=== PATIENT | female | born 1930 | race Caucasian/White ===

== ENCOUNTER 2018-06-01 12:20 | Observation (INO) | payer MEDICARE, BC ==
[2018-06-01] MEDS ORDERED: Sodium Chloride 0.9% 1,000 ML IV ONE (12:39)
[2018-06-01 13:45] LABS: CHLORIDE,CL 100 mmol/L (98-107); SODIUM,NA 132 mmol/L (136-145)
[2018-06-01 13:48] LABS: ANION GAP 14.8 mmol/L (10-20)
[2018-06-01] MEDS ORDERED: Phytonadione ORAL 2.5mg/2.5ml Soln Simple Syrup U/D PO ONE (14:04)
--- NOTE | 2018-06-01 14:16 | CR ---
[id number] RAD/RAD Chest PA And Lateral EXAM: RAD Chest PA And Lateral CLINICAL DATA: FEVER COMPARISON: NO PREVIOUS SIMILAR EXAM IS AVAILABLE. FINDINGS: The lungs are clear but hyperaerated. The cardiomediastinal contour is moderately enlarged. The regional bones and soft tissues are unremarkable. IMPRESSION: COPD. NO PNEUMONIA. Mickey Mills MD 06/01/18 [id number] Thank you for allowing us to participate in the care of your patient.
[2018-06-01] MEDS: Sodium Chloride 0.9% with KCl 1,000 ML IV SCH ×2 (14:25→23:44)
[2018-06-01] MEDS ORDERED: Furosemide 20 MG Tab PO PRN (14:26)
[2018-06-01] MEDS ORDERED: Ondansetron 4 MG/2 ML SDV IVPUSH PRN (14:28)
[2018-06-01] MEDS ORDERED: Prochlorperazine 5 MG Tab PO PRN (14:29)
--- NOTE | 2018-06-01 15:06 | EDM.PDOC ---
ED HPI GENERAL MEDICAL PROBLEM - General Chief Complaint: Gastrointestinal Problem Time Seen by Provider: 06/01/18 12:35 Source of Information: Reports: Patient, EMS, Family, RN Notes Reviewed History Limitations: Reports: No Limitations - History of Present Illness INITIAL COMMENTS - FREE TEXT/NARRATIVE: Pt. presents to ER with complaints of nausea, vomiting, and diarrhea. Pt. has a history of metastatic colon CA and underwent a single episode of chemotherapy. Pt. states that she is due to chemo on Wednesday, but she has felt so poorly, she likely will not take it. She states that she has been started on Zofran and started on Immodium, and is continuing to have symptoms. She is having issues keeping fluids down. She is anticoagulated due to previous PE. She states that she did take her morning medications. Denies any fever or chills, but has not been checking her temp. Denies any rashes. No sore throat, rhinorrhea, or congestion. Denies any ill contacts. She has not recently been on any antibiotics or other medications. Duration: Constant Location: Reports: Abdomen, Generalized - Related Data Allergies Allergy/AdvReac Type Severity Reaction Status Date / Time cephalexin Allergy Hives Verified 06/01/18 12:43 codeine Allergy Hives Verified 06/01/18 12:43 latex Allergy Rash Verified 06/01/18 12:43 Sulfa (Sulfonamide Allergy Swelling Verified 06/01/18 12:43 Antibiotics) Home Meds: Home Meds Metoprolol Succinate 1 tab PO DAILY 03/29/18 [History] Acetaminophen 1 - 2 tab PO Q4H PRN 03/30/18 [History] Desoximetasone [Desoximetasone 0.25%] 15 gm TOP DAILY PRN 03/30/18 [History] Famotidine [Pepcid] 20 mg PO BID 03/30/18 [History] Furosemide 20 mg PO DAILY PRN 03/30/18 [History] Magnesium Oxide 400 mg PO BID 03/30/18 [History] Warfarin [Coumadin] 1 tab PO DAILY 03/30/18 [History] Acetaminophen 325 - 650 mg PO Q4H PRN 06/01/18 [History] Prochlorperazine [Compazine] 10 mg PO Q6H PRN 06/01/18 [History] Spironolactone [Aldactone] 25 mg PO DAILY 06/01/18 [History] Past Medical History Cardiovascular History: Reports: Heart Failure, High Cholesterol Respiratory History: Reports: PE, Other (See Below) Other Respiratory History: dyspnea Oncologic (Cancer) History: Reports: Colon - Past Surgical History GI Surgical History: Reports: Other (See Below) Other GI Surgeries/Procedures: bowel surgery Social & Family History - Tobacco Use Smoking Status *Q: Never Smoker ED ROS GENERAL - Review of Systems Review Of Systems: See Below Constitutional: Reports: No Symptoms HEENT: Reports: No Symptoms Respiratory: Reports: No Symptoms Cardiovascular: Reports: No Symptoms Endocrine: Reports: No Symptoms GI/Abdominal: Reports: Diarrhea, Nausea, Vomiting : Reports: No Symptoms Musculoskeletal: Reports: No Symptoms Skin: Reports: No Symptoms Neurological: Reports: No Symptoms Psychiatric: Reports: No Symptoms Hematologic/Lymphatic: Reports: Other (anticoagulated) Immunologic: Reports: No Symptoms ED EXAM, GENERAL - Physical Exam Exam: See Below Exam Limited By: No Limitations General Appearance: Alert, WD/WN, No Apparent Distress Eye Exam: Bilateral Eye: EOMI, Normal Fundi, Normal Inspection, PERRL Ears: Normal External Exam, Normal Canal, Hearing Grossly Normal, Normal TMs Ear Exam: Bilateral Ear: Auricle Normal, Canal Normal, TM normal Nose: Normal Inspection, Normal Mucosa, No Blood Throat/Mouth: Normal Inspection, Normal Lips, Normal Teeth, Normal Gums, Normal Oropharynx, Normal Voice, No Airway Compromise Head: Atraumatic, Normocephalic Neck: Normal Inspection, Supple, Non-Tender, Full Range of Motion Respiratory/Chest: No Respiratory Distress, Lungs Clear, Normal Breath Sounds, No Accessory Muscle Use, Chest Non-Tender Cardiovascular: Systolic Murmur, Irregularly Irregular Peripheral Pulses: 3+: Radial (L), Radial (R) GI/Abdominal: Normal Bowel Sounds, Soft, Non-Tender, No Organomegaly, No Distention (Female) Exam: Deferred Rectal (Female) Exam: Deferred Back Exam: Normal Inspection, Full Range of Motion, NT Extremities: Normal Inspection, Normal Range of Motion, Non-Tender, Normal Capillary Refill, No Pedal Edema Neurological: Alert, Oriented, CN II-XII Intact, Normal Cognition, Normal Gait, Normal Reflexes, No Motor/Sensory Deficits Psychiatric: Normal Affect, Normal Mood Skin Exam: Warm, Dry, Intact, No Rash, Pallor Lymphatic: No Adenopathy Course - Vital Signs Last Recorded V/S: Last Vital Signs Temp 37.9 C 06/01/18 12:30 Pulse 113 H 06/01/18 12:30 Resp 16 06/01/18 12:30 BP 153/78 H 06/01/18 12:30 Pulse Ox 94 L 06/01/18 12:30 - Orders/Labs/Meds Orders: Active Orders 24 hr Category Date Time Status CULTURE BLOOD [BC] Stat Lab 06/01/18 12:55 Received CULTURE BLOOD [BC] Stat Lab 06/01/18 13:04 Received Sodium Chloride 0.9% with KCl [Normal Saline with 40 Med 06/01/18 14:15 Active mEq KCl] 1,000 ml IV ASDIRECTED Blood Culture x2 Reflex Set [OM.PC] Stat Oth 06/01/18 12:38 Ordered Medication Orders Famotidine (Pepcid) 20 mg PO BID RANJIT Furosemide (Lasix) 20 mg PO DAILY PRN PRN Reason: Other Potassium Chloride/Sodium Chloride (Normal Saline With 40 Meq Kcl) 1,000 mls @ 125 mls/hr IV ASDIRECTED RANJIT Last Admin: 06/01/18 14:25 Dose: 125 mls/hr Magnesium Oxide (Magnesium Oxide) 400 mg PO BID RANJIT Metoprolol Succinate (Toprol Xl) 50 mg PO DAILY [facility] Ondansetron HCl (Zofran) 4 mg IVPUSH Q6H PRN PRN Reason: Nausea Prochlorperazine Maleate (Compazine) 5 mg PO Q6H PRN PRN Reason: Nausea/Vomiting Spironolactone (Aldactone) 25 mg PO DAILY [facility] Labs: Laboratory Tests 06/01/18 06/01/18 06/01/18 Range/Units 13:04 13:04 13:04 WBC 6.6 (4.0-10.0) x10^3/uL RBC 4.20 (4.00-5.50) x10^6/uL Hgb 13.1 D (12.0-16.0) g/dL Hct 38.4 (33.0-47.0) % MCV 91.4 D (78.0-93.0) fL MCH 31.2 (26.0-32.0) pg MCHC 34.1 (32.0-36.0) g/dL RDW Coeff of Michelle 17.1 H (10.0-15.0) % Plt Count 340 D (130-400) x10^3/uL Add Manual Diff Yes Neutrophils % (Manual) 48 L (50-80) % Band Neutrophils % 28 H (0-6) % Lymphocytes % (Manual) 9 L (25-50) % Monocytes % (Manual) 15 H (2-11) % Platelet Estimate Adequate Anisocytosis 2+ moderate H PT 88.4 H D (9.6-11.4) SEC INR 8.6 H* (2.0-3.5) Sodium 132 L (136-145) mmol/L Potassium 2.8 L* (3.5-5.1) mmol/L Chloride 100 (98-107) mmol/L Carbon Dioxide 20 L (21-32) mmol/L Anion Gap 14.8 (10-20) mmol/L BUN 14 (7-18) mg/dL Creatinine 0.7 (0.55-1.02) mg/dL Est Cr Clr Drug Dosing 52.96 mL/min Estimated GFR (MDRD) > 60 Glucose 131 H (74-106) mg/dL Lactic Acid (0.4-2.0) mmol/L Calcium 8.9 (8.5-10.1) mg/dL Corrected Calcium 10.42 H (8.5-10.1) mg/dL Phosphorus 2.1 L (2.6-4.7) mg/dL Magnesium 1.5 L (1.8-2.4) mg/dL Total Bilirubin 0.5 (0.2-1.0) mg/dL AST 12 L (15-37) U/L ALT 15 (14-59) U/L Alkaline Phosphatase 87 (46-116) U/L C-Reactive Protein 23.5 H (<=0.9) mg/dL Total Protein 5.4 L (6.4-8.2) g/dL Albumin 2.1 L (3.4-5.0) g/dL Globulin 3.3 Albumin/Globulin Ratio 0.64 Urine Color (YELLOW) Urine Appearance (CLEAR) Urine pH (5.0-8.0) Ur Specific [place] Urine Protein (NEGATIVE) mg/dL Urine Glucose (UA) (NEGATIVE) mg/dL Urine Ketones (NEGATIVE) mg/dL Urine Occult Blood (NEGATIVE) Urine Nitrite (NEGATIVE) Urine Bilirubin (NEGATIVE) Urine Urobilinogen (0.2) EU/dL Ur Leukocyte Esterase (NEGATIVE) Urine RBC (NOT SEEN) /HPF Urine WBC (NOT SEEN) /HPF Ur Squamous Epith Cells (NEGATIVE) /HPF Calcium Oxalate Crystal (NEGATIVE) /HPF Urine Bacteria (NEGATIVE) /HPF Urine Mucus (NEGATIVE) /LPF 06/01/18 06/01/18 Range/Units 13:04 13:20 WBC (4.0-10.0) x10^3/uL RBC (4.00-5.50) x10^6/uL Hgb (12.0-16.0) g/dL Hct (33.0-47.0) % MCV (78.0-93.0) fL MCH (26.0-32.0) pg MCHC (32.0-36.0) g/dL RDW Coeff of Michelle (10.0-15.0) % Plt Count (130-400) x10^3/uL Add Manual Diff Neutrophils % (Manual) (50-80) % Band Neutrophils % (0-6) % Lymphocytes % (Manual) (25-50) % Monocytes % (Manual) (2-11) % Platelet Estimate Anisocytosis PT (9.6-11.4) SEC INR (2.0-3.5) Sodium (136-145) mmol/L Potassium (3.5-5.1) mmol/L Chloride (98-107) mmol/L Carbon Dioxide (21-32) mmol/L Anion Gap (10-20) mmol/L BUN (7-18) mg/dL Creatinine (0.55-1.02) mg/dL Est Cr Clr Drug Dosing mL/min Estimated GFR (MDRD) Glucose (74-106) mg/dL Lactic Acid 1.2 (0.4-2.0) mmol/L Calcium (8.5-10.1) mg/dL Corrected Calcium (8.5-10.1) mg/dL Phosphorus (2.6-4.7) mg/dL Magnesium (1.8-2.4) mg/dL Total Bilirubin (0.2-1.0) mg/dL AST (15-37) U/L ALT (14-59) U/L Alkaline Phosphatase (46-116) U/L C-Reactive Protein (<=0.9) mg/dL Total Protein (6.4-8.2) g/dL Albumin (3.4-5.0) g/dL Globulin Albumin/Globulin Ratio Urine Color Yellow (YELLOW) Urine Appearance Slightly cloudy H (CLEAR) Urine pH 5.5 (5.0-8.0) Ur Specific [place] >=1.030 Urine Protein 30 H (NEGATIVE) mg/dL Urine Glucose (UA) Negative (NEGATIVE) mg/dL Urine Ketones 80 H (NEGATIVE) mg/dL Urine Occult Blood Small H (NEGATIVE) Urine Nitrite Negative (NEGATIVE) Urine Bilirubin Small H (NEGATIVE) Urine Urobilinogen 0.2 (0.2) EU/dL Ur Leukocyte Esterase Negative (NEGATIVE) Urine RBC 0-5 (NOT SEEN) /HPF Urine WBC 0-5 (NOT SEEN) /HPF Ur Squamous Epith Cells Few H (NEGATIVE) /HPF Calcium Oxalate Crystal Few H (NEGATIVE) /HPF Urine Bacteria Few H (NEGATIVE) /HPF Urine Mucus Moderate H (NEGATIVE) /LPF Meds: Medications Generic Name Dose Route Start Last Admin Trade Name Freq PRN Reason Stop Dose Admin Famotidine 20 mg 06/01/18 20:00 Pepcid PO BID RANJIT Furosemide 20 mg 06/01/18 14:26 Lasix PO DAILY PRN Other Potassium Chloride/Sodium Chloride 1,000 mls @ 125 mls/hr 06/01/18 14:15 10/12 14:25 Normal Saline With 40 Meq Kcl IV 125 mls/hr ASDIRECTED RANJIT Administration Magnesium Oxide 400 mg 06/01/18 20:00 Magnesium Oxide PO BID RANJIT Metoprolol Succinate 50 mg 06/02/18 08:00 Toprol Xl PO DAILY RANJIT Ondansetron HCl 4 mg 06/01/18 14:28 Zofran IVPUSH Q6H PRN Nausea Prochlorperazine Maleate 5 mg 06/01/18 14:29 Compazine PO Q6H PRN Nausea/Vomiting Spironolactone 25 mg 06/02/18 08:00 Aldactone PO DAILY RANJIT Discontinued Medications Generic Name Dose Route Start Last Admin Trade Name Freq PRN Reason Stop Dose Admin Sodium Chloride 1,000 mls @ 1,000 mls/hr 06/01/18 12:39 06/01/18 12:30 Normal Saline IV 06/01/18 13:38 1,000 mls/hr .BOLUS ONE Administration Phytonadione 2.5 mg 06/01/18 14:04 06/01/18 14:23 Aquamephyton PO 06/01/18 14:05 2.5 mg ONETIME ONE Administration - Radiology Interpretation Free Text/Narrative:: chest x-ray is negative - Re-Assessments/Exams Free Text/Narrative Re-Assessment/Exam: 06/01/18 15:11 Pt. was found to be hypokalemic and was started on NS with 40KCL at 125ml/hr. She was also given 2.5mg vit. K PO for supratheraputic INR. She was feeling less nauseated after her Zofran. Departure - Departure Time of Disposition: 14:30 Disposition: Home, Self-Care 01 Clinical Impression: Diarrhea, Vomiting, Hypokalemia, Elevated INR - Discharge Information - Problem List Review Problem List Initiated/Reviewed/Updated: Yes - My Orders Last 24 Hours: My Active Orders 06/01/18 12:38 Blood Culture x2 Reflex Set [OM.PC] Stat 06/01/18 12:55 CULTURE BLOOD [BC] Stat 06/01/18 13:04 CULTURE BLOOD [BC] Stat 06/01/18 14:15 Sodium Chloride 0.9% with KCl [Normal Saline with 40 mEq KCl] 1,000 ml IV ASDIRECTED - Assessment/Plan Admission H&P: Please use this note as an admission H&P Last 24 Hours: My Active Orders 06/01/18 12:38 Blood Culture x2 Reflex Set [OM.PC] Stat 06/01/18 12:55 CULTURE BLOOD [BC] Stat 06/01/18 13:04 CULTURE BLOOD [BC] Stat 06/01/18 14:15 Sodium Chloride 0.9% with KCl [Normal Saline with 40 mEq KCl] 1,000 ml IV ASDIRECTED Plan: Will admit patient observation. She is a code level 2. NS with 40KCL at 125ml/ hr. Will hold her coumadin and recheck INR tomorrow. All questions were answered. Pt. is seen by [facility] by Dr. Smith.
[2018-06-01] MEDS: Famotidine 20 MG Tab PO SCH (20:36)
[2018-06-01] MEDS: Magnesium Oxide 400 MG Tab PO SCH (20:36)
[2018-06-02] MEDS: Magnesium Oxide 400 MG Tab PO SCH ×2 (07:50→20:00)
[2018-06-02] MEDS: Metoprolol Succinate 50 MG Tab.ER PO SCH (07:50)
[2018-06-02] MEDS: Spironolactone 25 MG Tab PO SCH (07:51)
[2018-06-02] MEDS: Famotidine 20 MG Tab PO SCH ×2 (07:51→20:00)
[2018-06-02 08:59] LABS: CHLORIDE,CL 103 mmol/L (98-107); SODIUM,NA 134 mmol/L (136-145)
[2018-06-02 09:03] LABS: ANION GAP 13.6 mmol/L (10-20)
[2018-06-02] MEDS: Warfarin 2.5 MG Tab PO SCH (09:41)
[2018-06-02] MEDS: Sodium Chloride 0.9% with KCl 1,000 ML IV SCH (11:13)
[2018-06-02] MEDS ORDERED: Loperamide 2 MG Cap PO PRN (15:11)
--- NOTE | 2018-06-03 07:51 | PCM.PN ---
- General Info Date of Service: 06/02/18 Admission Dx/Problem (Free Text): Pt. continues to experience diarrhea. She is able to hold down fluids. Her potassium has normalized. Her INR is in the theraputic range. PT did work with the patient and it is felt that she is strong enough for discharge. Her c diff and other stool studies are delayed due to the weather. Nursing reports that her stools are more consistent with diarrhea of viral etiology. Functional Status: Reports: Pain Controlled - Review of Systems General: Reports: No Symptoms HEENT: Reports: No Symptoms Pulmonary: Reports: No Symptoms Cardiovascular: Reports: No Symptoms Gastrointestinal: Reports: Diarrhea Genitourinary: Reports: No Symptoms Musculoskeletal: Reports: No Symptoms Skin: Reports: No Symptoms Neurological: Reports: No Symptoms Psychiatric: Reports: No Symptoms - Patient Data Vitals - Most Recent: Last Vital Signs Temp 37.2 C 06/03/18 05:11 Pulse 84 06/03/18 05:11 Resp 16 06/03/18 05:11 BP 112/40 L 06/03/18 05:11 Pulse Ox 98 06/03/18 05:11 Weight - Most Recent: 75.07 kg I&O - Last 24 Hours: Intake & Output 06/02/18 06/03/18 06/03/18 22:59 06:59 14:59 Intake Total 979 Balance 979 Lab Results Last 24 Hours: Laboratory Results - last 24 hr 06/02/18 06/02/18 Range/Units 08:25 08:25 PT 21.2 H D (9.6-11.4) SEC INR 2.0 (2.0-3.5) Sodium 134 L (136-145) mmol/L Potassium 3.6 (3.5-5.1) mmol/L Chloride 103 (98-107) mmol/L Carbon Dioxide 21 (21-32) mmol/L Anion Gap 13.6 (10-20) mmol/L BUN 11 (7-18) mg/dL Creatinine 0.7 (0.55-1.02) mg/dL Est Cr Clr Drug Dosing 51.91 mL/min Estimated GFR (MDRD) > 60 Glucose 94 (74-106) mg/dL Calcium 8.9 (8.5-10.1) mg/dL Isidro Results Last 24 Hours: Microbiology 06/01/18 13:04 Aerobic Blood Culture - Preliminary Blood - Venous - Lab Draw NO GROWTH AFTER 1 DAY Anaerobic Blood Culture - Preliminary NO GROWTH AFTER 1 DAY 06/01/18 12:55 Aerobic Blood Culture - Preliminary Blood - Venous NO GROWTH AFTER 1 DAY Anaerobic Blood Culture - Preliminary NO GROWTH AFTER 1 DAY Med Orders - Current: Current Medications Famotidine (Pepcid) 20 mg PO BID [facility] Last Admin: 06/02/18 20:00 Dose: 20 mg Furosemide (Lasix) 20 mg PO DAILY PRN PRN Reason: Other Loperamide HCl (Imodium) 2 mg PO Q4H PRN PRN Reason: Diarrhea Magnesium Oxide (Magnesium Oxide) 400 mg PO BID [facility] Last Admin: 06/02/18 20:00 Dose: 400 mg Metoprolol Succinate (Toprol Xl) 50 mg PO DAILY [facility] Last Admin: 06/02/18 07:50 Dose: 50 mg Ondansetron HCl (Zofran) 4 mg IVPUSH Q6H PRN PRN Reason: Nausea Prochlorperazine Maleate (Compazine) 5 mg PO Q6H PRN PRN Reason: Nausea/Vomiting Spironolactone (Aldactone) 25 mg PO DAILY [facility] Last Admin: 06/02/18 07:51 Dose: 25 mg Warfarin Sodium (Coumadin) 2.5 mg PO DAILY [facility] Last Admin: 06/02/18 09:41 Dose: 2.5 mg Discontinued Medications Sodium Chloride (Normal Saline) 1,000 mls @ 1,000 mls/hr IV .BOLUS ONE Stop: 06/01/18 13:38 Last Admin: 06/01/18 12:30 Dose: 1,000 mls/hr Potassium Chloride/Sodium Chloride (Normal Saline With 40 Meq Kcl) 1,000 mls @ 125 mls/hr IV ASDIRECTED [facility] Last Admin: 06/02/18 11:13 Dose: 125 mls/hr Phytonadione (Aquamephyton) 2.5 mg PO ONETIME ONE Stop: 06/01/18 14:05 Last Admin: 06/01/18 14:23 Dose: 2.5 mg - Exam General: Alert, Oriented Neck: Supple Lungs: Clear to Auscultation, Normal Respiratory Effort Cardiovascular: Regular Rate, Regular Rhythm GI/Abdominal Exam: Normal Bowel Sounds, Soft, Non-Tender. No: Rigid, Rebound, Tender Back Exam: Normal Inspection, Full Range of Motion Extremities: Normal Inspection, Normal Range of Motion, Non-Tender, No Pedal Edema, Normal Capillary Refill Skin: Warm, Dry, Intact Neurological: No New Focal Deficit Psy/Mental Status: Alert, Normal Affect, Normal Mood - Problem List Review Problem List Initiated/Reviewed/Updated: Yes - My Orders Last 24 Hours: My Active Orders 06/02/18 08:00 Metoprolol Succinate [Toprol XL] 50 mg PO DAILY Spironolactone [Aldactone] 25 mg PO DAILY 06/02/18 09:02 Consult to Physical Therapy [PT Evaluation and Treatment] [CONS] Routine OT Evaluation and Treatment [CONS] Routine 06/02/18 09:15 Warfarin [Coumadin] 2.5 mg PO DAILY 06/02/18 15:11 Loperamide [Imodium] 2 mg PO Q4H PRN - Plan Plan:: Pt. is admitted observation (her PCP is Luis in [place]) and her 48 hour stay period is the morning of 06/03. I did start immodium. Will evaluate in the AM to determine discharge status vs. self pay swing admission.
[2018-06-03] MEDS: Warfarin 2.5 MG Tab PO SCH (08:40)
[2018-06-03] MEDS: Famotidine 20 MG Tab PO SCH (08:40)
[2018-06-03] MEDS: Metoprolol Succinate 50 MG Tab.ER PO SCH (08:40)
[2018-06-03] MEDS: Magnesium Oxide 400 MG Tab PO SCH (08:40)
[2018-06-03] MEDS: Spironolactone 25 MG Tab PO SCH (08:41)
[2018-06-03] MEDS ORDERED: Vancomycin 125 MG/2.5 ML Oral Solution 2.5 ML UD Cup PO SCH (08:45)
[2018-06-03 08:55] LABS: CHLORIDE,CL 102 mmol/L (98-107); SODIUM,NA 132 mmol/L (136-145)
--- NOTE | 2018-06-03 09:27 | PCM.DCSUM1 ---
Discharge Summary - Hospital Course Free Text/Narrative:: Please use patient's observation h and p for her swing bed h and p. Pt. was admitted with diarrhea, dehydration, and hypokalemia on 06/01/18. She has a history of colon CA. She has been rehydrated and is continuing to experience diarrhea. Her stool studies are delayed due to weather. She was subsequently started on oral vancomycin 125mg 4 times daily in the even that she has c diff. Pt. feels as though she is not able to care for herself at [place]. Discussed this with patient and family and she would like to be self pay swing over the weekend. She was seen by PT and was able to ambulate without difficulty but she still feels too weak for discharge. - Discharge Data Discharge Date: 06/03/18 Discharge Disposition: DC/Tfer W/I Hosp To Swing 61 Condition: Good - Discharge Diagnosis/Problem(s) (1) Diarrhea SNOMED Code(s): 08765567 ICD Code: R19.7 - DIARRHEA, UNSPECIFIED Status: Acute Current Visit: Yes - Patient Summary/Data Consults: Consultations 06/02/18 09:02 Consult to Physical Therapy [PT Evaluation and Treatment] [CONS] Routine OT Evaluation and Treatment [CONS] Routine - Discharge Plan Prescriptions/Med Rec: Ondansetron [Zofran] 4 mg IVPUSH Q6H PRN #20 vial PRN Reason: Nausea Prochlorperazine [Compazine] 5 mg PO Q6H PRN #20 tablet PRN Reason: Nausea/Vomiting Home Medications: Home Meds Metoprolol Succinate 1 tab PO DAILY 03/29/18 [History] Acetaminophen 1 - 2 tab PO Q4H PRN 03/30/18 [History] Desoximetasone [Topicort 0.25% Crm] 15 gm TOP DAILY PRN 03/30/18 [History] Famotidine [Pepcid] 20 mg PO BID 03/30/18 [History] Furosemide 20 mg PO DAILY PRN 03/30/18 [History] Magnesium Oxide 400 mg PO BID 03/30/18 [History] Warfarin [Coumadin] 1 tab PO DAILY 03/30/18 [History] Acetaminophen 325 - 650 mg PO Q4H PRN 06/01/18 [History] Prochlorperazine [Compazine] 10 mg PO Q6H PRN 06/01/18 [History] Spironolactone [Aldactone] 25 mg PO DAILY 06/01/18 [History] Ondansetron [Zofran] 4 mg IVPUSH Q6H PRN #20 vial 06/03/18 [Rx] Prochlorperazine [Compazine] 5 mg PO Q6H PRN #20 tablet 06/03/18 [Rx] Vancomycin [Vancocin 125 MG/2.5 ML Soln] 125 mg PO QID #16 cup 06/03/18 [Rx] Warfarin [Coumadin] 2.5 mg PO DAILY tablet 06/03/18 [Rx] Forms: ED Department Discharge Referrals: Shine Smith MD [Primary Care Provider] - - Discharge Summary/Plan Comment DC Time >30 min.: Yes Discharge Summary/Plan Comment: Pt. will be transitioned to swingbed self pay. discussed with patient and family and they feel that she needs further time in the hospital. Her INR was elevated again. Will hold her coumadin today and recheck in the AM. Oral vancomycin was started Pt. is a code level 2. - General Info Date of Service: 06/03/18 - Review of Systems General: Reports: No Symptoms HEENT: Reports: No Symptoms Pulmonary: Reports: No Symptoms Cardiovascular: Reports: No Symptoms Gastrointestinal: Reports: Diarrhea Genitourinary: Reports: No Symptoms Musculoskeletal: Reports: No Symptoms Skin: Reports: No Symptoms Neurological: Reports: No Symptoms Psychiatric: Reports: No Symptoms - Patient Data Vitals - Most Recent: Last Vital Signs Temp 37.2 C 06/03/18 05:11 Pulse 84 06/03/18 08:40 Resp 16 06/03/18 05:11 BP 125/70 06/03/18 08:40 Pulse Ox 98 06/03/18 05:11 Weight - Most Recent: 75.07 kg I&O - Last 24 hours: Intake & Output 06/02/18 06/03/18 06/03/18 22:59 06:59 14:59 Intake Total 979 Output Total 500 Balance 979 -500 Lab Results - Last 24 hrs: Laboratory Results - last 24 hr 06/03/18 06/03/18 06/03/18 Range/Units 08:25 08:25 08:25 WBC 6.1 (4.0-10.0) x10^3/uL RBC 3.89 L (4.00-5.50) x10^6/uL Hgb 12.1 (12.0-16.0) g/dL Hct 35.5 (33.0-47.0) % MCV 91.3 (78.0-93.0) fL MCH 31.1 (26.0-32.0) pg MCHC 34.1 (32.0-36.0) g/dL RDW Coeff of Michelle 16.9 H (10.0-15.0) % Plt Count 355 (130-400) x10^3/uL Add Manual Diff Yes Neutrophils % (Manual) 56 (50-80) % Band Neutrophils % 11 H (0-6) % Lymphocytes % (Manual) 24 L (25-50) % Atypical Lymphs % 1 H (0) % Monocytes % (Manual) 6 (2-11) % Eosinophils % (Manual) 2 (0-4) % Platelet Estimate Adequate PT 56.9 H D (9.6-11.4) SEC INR 5.5 H* (2.0-3.5) Sodium 132 L (136-145) mmol/L Potassium 3.0 L (3.5-5.1) mmol/L Chloride 102 (98-107) mmol/L Carbon Dioxide 19 L (21-32) mmol/L Anion Gap 14.0 (10-20) mmol/L BUN 7 (7-18) mg/dL Creatinine 0.5 L (0.55-1.02) mg/dL Est Cr Clr Drug Dosing 72.68 mL/min Estimated GFR (MDRD) > 60 Glucose 87 (74-106) mg/dL Calcium 8.9 (8.5-10.1) mg/dL Corrected Calcium 10.66 H (8.5-10.1) mg/dL Total Bilirubin 0.4 (0.2-1.0) mg/dL AST 13 L (15-37) U/L ALT 13 L (14-59) U/L Alkaline Phosphatase 72 (46-116) U/L Total Protein 4.7 L (6.4-8.2) g/dL Albumin 1.8 L (3.4-5.0) g/dL Globulin 2.9 Albumin/Globulin Ratio 0.62 ANETA Results - Last 24 hrs: Microbiology 06/01/18 13:04 Aerobic Blood Culture - Preliminary Blood - Venous - Lab Draw NO GROWTH AFTER 1 DAY Anaerobic Blood Culture - Preliminary NO GROWTH AFTER 1 DAY 06/01/18 12:55 Aerobic Blood Culture - Preliminary Blood - Venous NO GROWTH AFTER 1 DAY Anaerobic Blood Culture - Preliminary NO GROWTH AFTER 1 DAY Med Orders - Current: Current Medications Famotidine (Pepcid) 20 mg PO BID [facility] Last Admin: 06/03/18 08:40 Dose: 20 mg Furosemide (Lasix) 20 mg PO DAILY PRN PRN Reason: Other Magnesium Oxide (Magnesium Oxide) 400 mg PO BID [facility] Last Admin: 06/03/18 08:40 Dose: 400 mg Metoprolol Succinate (Toprol Xl) 50 mg PO DAILY [facility] Last Admin: 06/03/18 08:40 Dose: 50 mg Ondansetron HCl (Zofran) 4 mg IVPUSH Q6H PRN PRN Reason: Nausea Prochlorperazine Maleate (Compazine) 5 mg PO Q6H PRN PRN Reason: Nausea/Vomiting Spironolactone (Aldactone) 25 mg PO DAILY [facility] Last Admin: 06/03/18 08:41 Dose: 25 mg Vancomycin HCl (Vancocin 125 Mg/2.5 Ml Soln) 125 mg PO QID [facility] Discontinued Medications Sodium Chloride (Normal Saline) 1,000 mls @ 1,000 mls/hr IV .BOLUS ONE Stop: 06/01/18 13:38 Last Admin: 06/01/18 12:30 Dose: 1,000 mls/hr Potassium Chloride/Sodium Chloride (Normal Saline With 40 Meq Kcl) 1,000 mls @ 125 mls/hr IV ASDIRECTED [facility] Last Admin: 06/02/18 11:13 Dose: 125 mls/hr Loperamide HCl (Imodium) 2 mg PO Q4H PRN PRN Reason: Diarrhea Phytonadione (Aquamephyton) 2.5 mg PO ONETIME ONE Stop: 06/01/18 14:05 Last Admin: 06/01/18 14:23 Dose: 2.5 mg Warfarin Sodium (Coumadin) 2.5 mg PO DAILY [facility] Last Admin: 06/03/18 08:40 Dose: 2.5 mg - Exam Quality Assessment: Reports: Supplemental Oxygen General: Reports: Alert, Oriented HEENT: Reports: Pupils Equal, Pupils Reactive, EOMI, Mucous Membr. Moist/[place] Neck: Reports: Supple Lungs: Reports: Clear to Auscultation, Normal Respiratory Effort Cardiovascular: Reports: Regular Rate, Regular Rhythm GI/Abdominal Exam: Normal Bowel Sounds, Soft, Non-Tender, No Organomegaly, No Distention (Female) Exam: Deferred Rectal (Female) Exam: Deferred Back Exam: Reports: Normal Inspection, Full Range of Motion Extremities: Normal Inspection, Normal Range of Motion, Non-Tender, No Pedal Edema, Normal Capillary Refill Skin: Reports: Warm, Dry, Intact Wound/Incisions: Reports: Healing Well Neurological: Reports: No New Focal Deficit Psy/Mental Status: Reports: Alert, Normal Affect, Normal Mood
[2018-06-03] MEDS ORDERED: KCL IV SCH (09:45)
[2018-06-03] MEDS ORDERED: SODIUM CHLORIDE 0.9% IV SCH (09:45)
[2018-06-03] MEDS ORDERED: POTASSIUM CHLORIDE 10 MEQ PO SCH (12:00)
== END 2018-06-03 09:35 | disposition swing bed (61) ==
LOC: VM.ED 12:20 → VM.MS 14:08
PROVIDERS: ADMIT Physician Assistant; ATTEND Physician Assistant
DX: R19.7 Diarrhea, unspecified (principal); E87.6 Hypokalemia; E86.0 Dehydration; E78.00 Pure hypercholesterolemia, unspecified; I50.9 Heart failure, unspecified; R79.1 Abnormal coagulation profile; Z79.01 Long term (current) use of anticoagulants; Z79.899 Other long term (current) drug therapy; Z88.1 Allergy status to other antibiotic agents; Z88.2 Allergy status to sulfonamides; Z88.5 Allergy status to narcotic agent; Z91.040 Latex allergy status; Z85.038 Personal history of other malignant neoplasm of large intestine
CPT/HCPCS: 36415; 71046; 80048; 80053; 81001; 83605; 83735; 84100; 85025; 85610; 86140; 87040; 87045; 87046; 87328; 87329; 87493; 87804; 87804-59; 96360; 96361; 96365; 96366; 97161-GP; 97530-GP; 99285; A9270-GY; G0378; J3480; J7030

== ENCOUNTER 2018-06-03 08:25 | Inpatient (IN) | payer SELFPAY ==
[2018-06-03] MEDS ORDERED: Acetaminophen 325 MG Tab PO PRN (09:59)
[2018-06-03] MEDS ORDERED: Ondansetron 4 MG/2 ML SDV IV PRN (09:59)
[2018-06-03] MEDS ORDERED: Ondansetron 4 MG Tab.DIS PO PRN (09:59)
[2018-06-03] MEDS ORDERED: PROCHLORPERAZINE 5 MG PO PRN (10:05)
[2018-06-03] MEDS ORDERED: Sodium Chloride 0.9% with KCl 40mEq/1,000 ML IV ONE (10:15)
[2018-06-03] MEDS: VANCOMYCIN 125 MG PO SCH ×4 (12:09→20:50)
[2018-06-03] MEDS: PROCHLORPERAZINE 10 MG PO PRN (20:53)
[2018-06-03] MEDS: Famotidine 20 MG Tab PO SCH (20:57)
[2018-06-03] MEDS: Magnesium Oxide 400 MG Tab PO SCH (20:58)
[2018-06-04] MEDS: Famotidine 20 MG Tab PO SCH ×2 (09:49→20:40)
[2018-06-04] MEDS: Magnesium Oxide 400 MG Tab PO SCH ×2 (09:49→20:39)
[2018-06-04] MEDS: SPIRONOLACTONE 25 MG PO SCH (09:50)
[2018-06-04] MEDS: VANCOMYCIN 125 MG PO SCH ×2 (09:50→12:26)
[2018-06-04] MEDS: METOPROLOL SUCCINATE 50 MG PO SCH (09:51)
[2018-06-04] MEDS: PANTOPRAZOLE 40 MG PO SCH (09:51)
[2018-06-04 11:35] LABS: CHLORIDE,CL 98 mmol/L (98-107); SODIUM,NA 133 mmol/L (136-145)
[2018-06-04 11:38] LABS: ANION GAP 16.3 mmol/L (10-20)
[2018-06-04] MEDS ORDERED: Phytonadione ORAL 2.5mg/2.5ml Soln Simple Syrup U/D PO ONE (12:26)
[2018-06-04] MEDS: PROCHLORPERAZINE 10 MG PO PRN (20:41)
[2018-06-05] MEDS: METOPROLOL SUCCINATE 50 MG PO SCH (08:42)
[2018-06-05] MEDS: Magnesium Oxide 400 MG Tab PO SCH ×2 (08:42→20:26)
[2018-06-05] MEDS: Famotidine 20 MG Tab PO SCH ×2 (08:42→20:26)
[2018-06-05] MEDS: PROCHLORPERAZINE 10 MG PO PRN ×2 (08:43→20:26)
[2018-06-05] MEDS: PANTOPRAZOLE 40 MG PO SCH (08:44)
[2018-06-05] MEDS: SPIRONOLACTONE 25 MG PO SCH (08:44)
[2018-06-05] MEDS ORDERED: Sodium Chloride 0.9% 1,000 ML IV ONE (16:35)
[2018-06-05] MEDS ORDERED: Loperamide 2 MG Cap PO PRN (17:06)
[2018-06-05 17:08] LABS: CHLORIDE,CL 99 mmol/L (98-107); SODIUM,NA 131 mmol/L (136-145)
[2018-06-05 17:10] LABS: ANION GAP 13.7 mmol/L (10-20)
[2018-06-05] MEDS: Sodium Chloride 0.9% with KCl 1,000 ML IV SCH (17:28)
[2018-06-05] MEDS: Atropine/Diphenoxylate 0.025-2.5 MG Tab PO PRN (17:28)
[2018-06-06] MEDS: Sodium Chloride 0.9% with KCl 1,000 ML IV SCH ×2 (03:28→12:05)
[2018-06-06 07:10] LABS: CHLORIDE,CL 103 mmol/L (98-107); SODIUM,NA 134 mmol/L (136-145)
[2018-06-06] MEDS ORDERED: Phytonadione ORAL 2.5mg/2.5ml Soln Simple Syrup U/D PO ONE (07:37)
[2018-06-06] MEDS: Magnesium Oxide 400 MG Tab PO SCH (07:52)
[2018-06-06] MEDS: Famotidine 20 MG Tab PO SCH (07:52)
[2018-06-06] MEDS: PANTOPRAZOLE 40 MG PO SCH (07:52)
[2018-06-06] MEDS: Atropine/Diphenoxylate 0.025-2.5 MG Tab PO PRN (07:52)
[2018-06-06] MEDS: METOPROLOL SUCCINATE 50 MG PO SCH (07:53)
[2018-06-06] MEDS: SPIRONOLACTONE 25 MG PO SCH (07:56)
--- NOTE | 2018-06-06 17:10 | PCM.PN ---
- General Info Date of Service: 06/05/18 Admission Dx/Problem (Free Text): Pt. continues to experience frequent diarrhea. She was transitioned to swingbed once she was adequately hydrated, but feels as though she is unable to adequately stay hydrated with oral fluids. She states that she is lightheaded and dizzy when standing. Her c-diff and stool cultures, as well as her blood cultures were all negative. Her potassium has dropped again. Her INR continues to be elevated, but has decreased to around 5. Family is very concerned about this patient and feel as though she needs to be transferred because she is "not getting better like she should". Functional Status: Reports: Pain Controlled - Review of Systems General: Reports: Weakness HEENT: Reports: No Symptoms Pulmonary: Reports: No Symptoms Cardiovascular: Reports: No Symptoms Gastrointestinal: Reports: Diarrhea, Nausea. Denies: Hematochezia, Melena, Vomiting Genitourinary: Reports: No Symptoms Musculoskeletal: Reports: No Symptoms Skin: Reports: Pallor Neurological: Reports: No Symptoms Psychiatric: Reports: No Symptoms - Patient Data Vitals - Most Recent: Last Vital Signs Temp 37.2 C 06/06/18 06:00 Pulse 90 06/06/18 07:53 Resp 20 06/06/18 06:00 BP 108/43 L 06/06/18 07:53 Pulse Ox 98 06/06/18 06:00 Weight - Most Recent: 75.296 kg I&O - Last 24 Hours: Intake & Output 06/06/18 06/06/18 06/06/18 06:59 14:59 22:59 Intake Total 2566 360 Balance 2566 360 Lab Results Last 24 Hours: Laboratory Results - last 24 hr 06/05/18 06/05/18 06/06/18 Range/Units 16:50 16:50 06:35 WBC 6.4 (4.0-10.0) x10^3/uL RBC 4.01 (4.00-5.50) x10^6/uL Hgb 12.4 (12.0-16.0) g/dL Hct 35.3 (33.0-47.0) % MCV 88.0 D (78.0-93.0) fL MCH 30.9 (26.0-32.0) pg MCHC 35.1 (32.0-36.0) g/dL RDW Coeff of Michelle 16.7 H (10.0-15.0) % Plt Count 342 (130-400) x10^3/uL Add Manual Diff Yes Neutrophils % (Manual) 72 (50-80) % Lymphocytes % (Manual) 27 (25-50) % Monocytes % (Manual) 1 L (2-11) % Platelet Estimate Adequate PT (9.6-11.4) SEC INR (2.0-3.5) Sodium 131 L 134 L (136-145) mmol/L Potassium 2.7 L* 3.0 L (3.5-5.1) mmol/L Chloride 99 103 (98-107) mmol/L Carbon Dioxide 21 23 (21-32) mmol/L Anion Gap 13.7 11.0 (10-20) mmol/L BUN 10 8 (7-18) mg/dL Creatinine 0.7 0.6 (0.55-1.02) mg/dL Est Cr Clr Drug Dosing 51.91 60.56 mL/min Estimated GFR (MDRD) > 60 > 60 Glucose 170 H 99 (74-106) mg/dL Calcium 8.9 8.5 (8.5-10.1) mg/dL 06/06/18 Range/Units 06:35 WBC (4.0-10.0) x10^3/uL RBC (4.00-5.50) x10^6/uL Hgb (12.0-16.0) g/dL Hct (33.0-47.0) % MCV (78.0-93.0) fL MCH (26.0-32.0) pg MCHC (32.0-36.0) g/dL RDW Coeff of Michelle (10.0-15.0) % Plt Count (130-400) x10^3/uL Add Manual Diff Neutrophils % (Manual) (50-80) % Lymphocytes % (Manual) (25-50) % Monocytes % (Manual) (2-11) % Platelet Estimate PT 116.8 H D (9.6-11.4) SEC INR 11.4 H* (2.0-3.5) Sodium (136-145) mmol/L Potassium (3.5-5.1) mmol/L Chloride (98-107) mmol/L Carbon Dioxide (21-32) mmol/L Anion Gap (10-20) mmol/L BUN (7-18) mg/dL Creatinine (0.55-1.02) mg/dL Est Cr Clr Drug Dosing mL/min Estimated GFR (MDRD) Glucose (74-106) mg/dL Calcium (8.5-10.1) mg/dL Med Orders - Current: Current Medications Discontinued Medications Acetaminophen (Tylenol) 650 mg PO Q4H PRN PRN Reason: Pain (Mild 1-3)/fever Diphenoxylate HCl/Atropine (Lomotil 0.025-2.5 Mg) 1 tab PO BID PRN PRN Reason: Diarrhea Last Admin: 06/06/18 07:52 Dose: 1 tab Famotidine (Pepcid) 20 mg PO BID [facility] Last Admin: 06/06/18 07:52 Dose: 20 mg Furosemide (Lasix) 20 mg PO DAILY PRN PRN Reason: Other Last Admin: 06/05/18 08:43 Dose: 20 mg Potassium Chloride/Sodium Chloride (Normal Saline With 40 Meq Kcl) 1,000 mls @ 125 mls/hr IV ONETIME ONE Stop: 06/03/18 18:14 Last Admin: 06/03/18 11:06 Dose: 125 mls/hr Sodium Chloride (Normal Saline) 1,000 mls @ 125 mls/hr IV .BOLUS ONE Stop: 06/06/18 00:34 Last Admin: 06/05/18 17:11 Dose: Not Given Potassium Chloride/Sodium Chloride (Normal Saline With 40 Meq Kcl) 1,000 mls @ 125 mls/hr IV ASDIRECTED [facility] Last Admin: 06/06/18 12:05 Dose: 125 mls/hr Loperamide HCl (Imodium) 2 mg PO Q4H PRN PRN Reason: Diarrhea Last Admin: 06/05/18 17:28 Dose: 2 mg Magnesium Oxide (Magnesium Oxide) 400 mg PO BID [facility] Last Admin: 06/06/18 07:52 Dose: 400 mg Metoprolol Succinate (Toprol Xl) 50 mg PO DAILY [facility] Last Admin: 06/06/18 07:53 Dose: 50 mg Own Supply: Prochlorperazine [ Compazine] 10mg 10 mg PO Q6H PRN PRN Reason: Nausea Last Admin: 06/05/18 20:26 Dose: 10 mg Vancomycin 125mg Cap (*Own Med*) 0 each PO QID [facility] Last Admin: 06/04/18 12:26 Dose: Not Given Ondansetron HCl (Zofran Odt) 4 mg PO Q6H PRN PRN Reason: nausea, able to take PO Ondansetron HCl (Zofran) 4 mg IV Q6H PRN PRN Reason: Nausea/Vomiting Pantoprazole Sodium (Protonix) 40 mg PO DAILY [facility] Last Admin: 06/06/18 07:52 Dose: 40 mg Phytonadione (Aquamephyton) 2.5 mg PO ONETIME ONE Stop: 06/04/18 12:27 Last Admin: 06/04/18 12:57 Dose: 2.5 mg Phytonadione (Aquamephyton) 2.5 mg PO ONETIME ONE Stop: 06/06/18 07:38 Last Admin: 06/06/18 07:53 Dose: 2.5 mg Prochlorperazine Maleate (Compazine) 5 mg PO Q6H PRN PRN Reason: Nausea/Vomiting Spironolactone (Aldactone) 25 mg PO DAILY [facility] Last Admin: 06/06/18 07:56 Dose: 25 mg Vancomycin HCl (Vancocin 125 Mg/2.5 Ml Soln) 125 mg PO QID [facility] Last Admin: 06/03/18 16:24 Dose: 125 mg - Exam General: Alert, Oriented Neck: Supple Lungs: Clear to Auscultation, Normal Respiratory Effort Cardiovascular: Regular Rate, Regular Rhythm, No Murmurs GI/Abdominal Exam: Normal Bowel Sounds, Soft, Non-Tender, No Organomegaly, No Distention, No Mass (Female) Exam: Deferred Extremities: Normal Inspection, Normal Range of Motion, Non-Tender, No Pedal Edema, Normal Capillary Refill Peripheral Pulses: 3+: Radial (L), Radial (R) Skin: Warm, Dry, Intact Neurological: No New Focal Deficit Psy/Mental Status: Alert, Normal Affect, Normal Mood - Problem List Review Problem List Initiated/Reviewed/Updated: Yes - My Orders Last 24 Hours: My Active Orders 06/05/18 17:06 Loperamide [Imodium] 2 mg PO Q4H PRN 06/05/18 17:07 Atropine/Diphenoxylate [Lomotil 0.025-2.5 MG] 1 tab PO BID PRN 06/05/18 17:15 Sodium Chloride 0.9% with KCl [Normal Saline with 40 mEq KCl] 1,000 ml IV ASDIRECTED 06/06/18 04:24 Daily Weight [Height and Weight] [RC] DAILY - Plan Plan:: [facility] was contacted. I spoke with both the hospitalist as well as the patient's oncologist who feel she would not benefit in any way from transfer. She will be transitioned to acute and will restart her IV fluids with potassium. Will continue with lomotil and loperamine. Discussed findings with patient and family. 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
--- NOTE | 2018-06-07 09:20 | PCM.DCSUM1 ---
Discharge Summary - Hospital Course Free Text/Narrative:: Please use this document for her acute H and P. Also, refer to her admission H and P. Pt. is being taken off of swingbed and transitioned to acute. She continues to have severe diarrhea, but the frequency of her stools has decreased. She was restarted on her NS with KCL and states that she is feeling somewhat better, despite have continued diarrhea. Oncology was consulted and the chemotherapy she was on is known to cause severe diarrhea that can last for 10-14 days. They advised against transferring the patient, as her workup here has been adequate and negative. Her cultures and c-diff were negative. Diagnosis: Stroke: No Modified Carbon Scale: No Symptoms at All Modified Carbon Scale Score: 0 - Discharge Data Discharge Date: 06/06/18 Discharge Disposition: DC/Tfer to Acute Hospital 02 Condition: Fair - Patient Summary/Data Consults: Consultations 06/06/18 17:23 Consult to Physical Therapy [PT Evaluation and Treatment] [CONS] Routine - Discharge Plan Home Medications: Home Meds Metoprolol Succinate 1 tab PO DAILY 03/29/18 [History] Famotidine [Pepcid] 20 mg PO BID 03/30/18 [History] Furosemide 20 mg PO DAILY PRN 03/30/18 [History] Magnesium Oxide 400 mg PO BID 03/30/18 [History] Acetaminophen 325 - 650 mg PO Q4H PRN 06/01/18 [History] Prochlorperazine [Compazine] 10 mg PO Q6H PRN 06/01/18 [History] Spironolactone [Aldactone] 25 mg PO DAILY 06/01/18 [History] Ondansetron [Zofran] 4 mg IVPUSH Q6H PRN #20 vial 06/03/18 [Rx] Pantoprazole [ProTONIX] 40 mg PO DAILY 06/03/18 [History] Diphenoxylate HCl/Atropine [Lomotil Tablet] 1 each PO BID PRN 06/06/18 [History] Loperamide [Imodium] 2 mg PO Q4H PRN 06/06/18 [History] Ondansetron [Zofran ODT] 4 mg PO Q6H PRN 06/06/18 [History] Sodium Chloride 0.9% with KCl [Normal Saline with 40 mEq KCl] 1,000 ml IV ASDIRECTED 06/06/18 [History] - Discharge Summary/Plan Comment DC Time >30 min.: Yes Discharge Summary/Plan Comment: Pt. is being placed on acute status as she is continuing to have diarrhea and needs IV hydration. She is a code 2. Will have PT/OT work with the patient. Continue immodium and lomotil for diarrhea. Will likely increase both of these. Continue NS with 40KCL at 125ml/hr. Discussed findings with patient and family as well. - General Info Date of Service: 06/07/18 Functional Status: Reports: Pain Controlled - Review of Systems General: Reports: Weakness HEENT: Reports: No Symptoms Pulmonary: Reports: No Symptoms Cardiovascular: Reports: No Symptoms Gastrointestinal: Reports: Diarrhea, Nausea Genitourinary: Reports: No Symptoms Musculoskeletal: Reports: No Symptoms Skin: Reports: No Symptoms Neurological: Reports: No Symptoms Psychiatric: Reports: No Symptoms - Patient Data Vitals - Most Recent: Last Vital Signs Temp 36.9 C 06/07/18 06:00 Pulse 86 06/07/18 06:00 Resp 18 06/07/18 06:00 BP 98/42 L 06/07/18 06:00 Pulse Ox 97 06/07/18 06:00 Weight - Most Recent: 79.107 kg I&O - Last 24 hours: Intake & Output 06/06/18 06/07/18 06/07/18 22:59 06:59 14:59 Intake Total 240 650 240 Output Total 750 Balance 240 -100 240 Lab Results - Last 24 hrs: Laboratory Results - last 24 hr 06/07/18 06/07/18 Range/Units 06:50 07:00 PT 54.8 H D (9.6-11.4) SEC INR 5.3 H* (2.0-3.5) Sodium 135 L (136-145) mmol/L Potassium 3.5 (3.5-5.1) mmol/L Chloride 105 (98-107) mmol/L Carbon Dioxide 21 (21-32) mmol/L Anion Gap 12.5 (10-20) mmol/L BUN 7 (7-18) mg/dL Creatinine 0.5 L (0.55-1.02) mg/dL Est Cr Clr Drug Dosing 72.68 mL/min Estimated GFR (MDRD) > 60 Glucose 98 (74-106) mg/dL Calcium 8.3 L (8.5-10.1) mg/dL Med Orders - Current: Current Medications Diphenoxylate HCl/Atropine (Lomotil 0.025-2.5 Mg) 1 tab PO QID PRN PRN Reason: Diarrhea Famotidine (Pepcid) 20 mg PO BID [facility] Last Admin: 06/06/18 20:38 Dose: 20 mg Furosemide (Lasix) 20 mg PO DAILY PRN PRN Reason: Other Last Admin: 06/06/18 20:38 Dose: 20 mg Potassium Chloride/Sodium Chloride (Normal Saline With 40 Meq Kcl) 1,000 mls @ 125 mls/hr IV ASDIRECTED [facility] Last Admin: 06/06/18 20:34 Dose: 125 mls/hr Loperamide HCl (Imodium) 2 mg PO Q4H PRN PRN Reason: Diarrhea Magnesium Oxide (Magnesium Oxide) 400 mg PO BID [facility] Last Admin: 06/06/18 20:36 Dose: 400 mg Metoprolol Succinate (Toprol Xl) 50 mg PO DAILY [facility] Ondansetron HCl (Zofran) 4 mg IVPUSH Q8H PRN PRN Reason: Nausea Pantoprazole Sodium (Protonix) 40 mg PO DAILY [facility] Prochlorperazine Maleate (Compazine) 5 mg PO Q6H PRN PRN Reason: Nausea/Vomiting Spironolactone (Aldactone) 25 mg PO DAILY [facility] - Exam Quality Assessment: Reports: Supplemental Oxygen General: Reports: Alert, Oriented Lungs: Reports: Clear to Auscultation, Normal Respiratory Effort Cardiovascular: Reports: Regular Rate, Regular Rhythm GI/Abdominal Exam: Normal Bowel Sounds, Soft, Non-Tender, No Organomegaly, No Distention, No Abnormal Bruit, No Mass (Female) Exam: Deferred Rectal (Female) Exam: Deferred Back Exam: Reports: Normal Inspection, Full Range of Motion Extremities: Normal Inspection, Normal Range of Motion, Non-Tender, No Pedal Edema, Normal Capillary Refill Skin: Reports: Warm, Dry, Intact Neurological: Reports: No New Focal Deficit Psy/Mental Status: Reports: Alert, Normal Affect, Normal Mood
== END 2018-06-06 17:00 | disposition critical access hospital (66) | DRG 948 ==
LOC: VM.MS 09:35
PROVIDERS: ADMIT Physician Assistant; ATTEND Physician Assistant
DX: R53.1 Weakness (principal); K52.1 Toxic gastroenteritis and colitis; C18.9 Malignant neoplasm of colon, unspecified; T45.1X5A Adverse effect of antineoplastic and immunosuppressive drugs, initial encounter; Z79.899 Other long term (current) drug therapy; E86.0 Dehydration; R79.1 Abnormal coagulation profile; E87.6 Hypokalemia; Z90.49 Acquired absence of other specified parts of digestive tract
CPT/HCPCS: 36415; 80048; 85025; 85610; 97165-GO; A9270-GY; J3480

== ENCOUNTER 2018-06-06 16:50 | Inpatient (IN) | payer MEDICARE, BC ==
[2018-06-06] MEDS ORDERED: Ondansetron 4 MG/2 ML SDV IVPUSH PRN (17:22)
[2018-06-06] MEDS ORDERED: Prochlorperazine 5 MG Tab PO PRN (17:22)
[2018-06-06] MEDS ORDERED: Loperamide 2 MG Cap PO PRN (17:23)
[2018-06-06] MEDS ORDERED: Atropine/Diphenoxylate 0.025-2.5 MG Tab PO PRN (17:24)
[2018-06-06] MEDS ORDERED: Furosemide 20 MG Tab PO PRN (19:10)
[2018-06-06] MEDS: Sodium Chloride 0.9% with KCl 1,000 ML IV SCH (20:34)
[2018-06-06] MEDS: Magnesium Oxide 400 MG Tab PO SCH (20:36)
[2018-06-06] MEDS: Famotidine 20 MG Tab PO SCH (20:38)
[2018-06-07 07:27] LABS: CHLORIDE,CL 105 mmol/L (98-107); SODIUM,NA 135 mmol/L (136-145)
[2018-06-07 07:28] LABS: ANION GAP 12.5 mmol/L (10-20)
[2018-06-07] MEDS: Famotidine 20 MG Tab PO SCH ×2 (09:12→19:45)
[2018-06-07] MEDS: Spironolactone 25 MG Tab PO SCH (09:12)
[2018-06-07] MEDS: Magnesium Oxide 400 MG Tab PO SCH ×2 (09:12→19:45)
[2018-06-07] MEDS: Metoprolol Succinate 50 MG Tab.ER PO SCH (09:13)
[2018-06-07] MEDS: Pantoprazole 40 MG Tab.CR PO SCH (09:13)
[2018-06-07] MEDS ORDERED: Atropine/Diphenoxylate 0.025-2.5 MG Tab PO PRN (09:52)
[2018-06-07] MEDS ORDERED: Loperamide 2 MG Cap PO PRN (09:53)
[2018-06-07] MEDS: Sodium Chloride 0.9% with KCl 1,000 ML IV SCH ×2 (11:15→19:42)
[2018-06-08] MEDS: Sodium Chloride 0.9% with KCl 1,000 ML IV SCH ×2 (04:40→12:41)
--- NOTE | 2018-06-08 07:19 | PCM.PN ---
- General Info Date of Service: 06/08/18 Admission Dx/Problem (Free Text): Diarrhea has decreased significantly. She states that she has only had 3-4 episodes in the past 24 hours. She continues to get IV NS with 40 KCL. Denies any nausea or vomiting. Her lomotil and loperamide were increased yesterday. She is tolerating regular diet. Denies any chest pain or shortness of breath. No fever or chills. Functional Status: Reports: Pain Controlled - Review of Systems General: Reports: No Symptoms HEENT: Reports: No Symptoms Pulmonary: Reports: No Symptoms Cardiovascular: Reports: No Symptoms Gastrointestinal: Reports: Diarrhea. Denies: Hematochezia, Melena, Vomiting Genitourinary: Reports: No Symptoms Musculoskeletal: Reports: No Symptoms Skin: Reports: No Symptoms Neurological: Reports: No Symptoms Psychiatric: Reports: No Symptoms - Patient Data Vitals - Most Recent: Last Vital Signs Temp 37.3 C 06/08/18 05:20 Pulse 102 H 06/08/18 05:20 Resp 18 06/08/18 05:20 BP 107/56 L 06/08/18 05:20 Pulse Ox 96 06/08/18 05:20 Weight - Most Recent: 79.469 kg I&O - Last 24 Hours: Intake & Output 06/07/18 06/08/18 06/08/18 22:59 06:59 14:59 Intake Total 1320 1814 Output Total 400 Balance 920 1814 Lab Results Last 24 Hours: Laboratory Results - last 24 hr 06/07/18 06/07/18 06/08/18 Range/Units 06:50 07:00 06:50 WBC 6.6 (4.0-10.0) x10^3/uL RBC 4.01 (4.00-5.50) x10^6/uL Hgb 12.5 (12.0-16.0) g/dL Hct 36.6 (33.0-47.0) % MCV 91.3 D (78.0-93.0) fL MCH 31.2 (26.0-32.0) pg MCHC 34.2 (32.0-36.0) g/dL RDW Coeff of Michelle 17.7 H (10.0-15.0) % Plt Count 382 (130-400) x10^3/uL Add Manual Diff Yes PT 54.8 H D (9.6-11.4) SEC INR 5.3 H* (2.0-3.5) Sodium 135 L (136-145) mmol/L Potassium 3.5 (3.5-5.1) mmol/L Chloride 105 (98-107) mmol/L Carbon Dioxide 21 (21-32) mmol/L Anion Gap 12.5 (10-20) mmol/L BUN 7 (7-18) mg/dL Creatinine 0.5 L (0.55-1.02) mg/dL Est Cr Clr Drug Dosing 72.68 mL/min Estimated GFR (MDRD) > 60 Glucose 98 (74-106) mg/dL Calcium 8.3 L (8.5-10.1) mg/dL Med Orders - Current: Current Medications Diphenoxylate HCl/Atropine (Lomotil 0.025-2.5 Mg) 2 tab PO QID PRN PRN Reason: Diarrhea Last Admin: 06/08/18 06:32 Dose: 2 tab Famotidine (Pepcid) 20 mg PO BID [facility] Last Admin: 06/07/18 19:45 Dose: 20 mg Furosemide (Lasix) 20 mg PO DAILY PRN PRN Reason: Other Last Admin: 06/06/18 20:38 Dose: 20 mg Potassium Chloride/Sodium Chloride (Normal Saline With 40 Meq Kcl) 1,000 mls @ 125 mls/hr IV ASDIRECTED [facility] Last Admin: 06/08/18 04:40 Dose: 125 mls/hr Loperamide HCl (Imodium) 4 mg PO Q6H PRN PRN Reason: Diarrhea Magnesium Oxide (Magnesium Oxide) 400 mg PO BID [facility] Last Admin: 06/07/18 19:45 Dose: 400 mg Metoprolol Succinate (Toprol Xl) 50 mg PO DAILY [facility] Last Admin: 06/07/18 09:13 Dose: 50 mg Ondansetron HCl (Zofran) 4 mg IVPUSH Q8H PRN PRN Reason: Nausea Pantoprazole Sodium (Protonix) 40 mg PO DAILY [facility] Last Admin: 06/07/18 09:13 Dose: 40 mg Prochlorperazine Maleate (Compazine) 5 mg PO Q6H PRN PRN Reason: Nausea/Vomiting Spironolactone (Aldactone) 25 mg PO DAILY [facility] Last Admin: 06/07/18 09:12 Dose: 25 mg Discontinued Medications Diphenoxylate HCl/Atropine (Lomotil 0.025-2.5 Mg) 1 tab PO QID PRN PRN Reason: Diarrhea Loperamide HCl (Imodium) 2 mg PO Q4H PRN PRN Reason: Diarrhea - Exam General: Alert, Oriented HEENT: Pupils Equal, Pupils Reactive, EOMI, Mucous Membr. Moist/[place] Neck: Supple Lungs: Clear to Auscultation, Normal Respiratory Effort Cardiovascular: Regular Rate, Regular Rhythm GI/Abdominal Exam: Soft, Non-Tender, No Organomegaly, No Distention (Female) Exam: Deferred Extremities: Normal Inspection, Normal Range of Motion, Non-Tender, No Pedal Edema, Normal Capillary Refill Skin: Warm, Dry, Intact Neurological: No New Focal Deficit Psy/Mental Status: Alert, Normal Affect, Normal Mood - Problem List Review Problem List Initiated/Reviewed/Updated: Yes - My Orders Last 24 Hours: My Active Orders 06/07/18 08:00 Metoprolol Succinate [Toprol XL] 50 mg PO DAILY Pantoprazole [ProTONIX] 40 mg PO DAILY Spironolactone [Aldactone] 25 mg PO DAILY 06/07/18 09:52 Atropine/Diphenoxylate [Lomotil 0.025-2.5 MG] 2 tab PO QID PRN 06/07/18 09:53 Loperamide [Imodium] 4 mg PO Q6H PRN 06/07/18 18:32 Consult to Dietary [Consult to [employer]] [CONS] Routine 06/08/18 06:50 CBC WITH AUTO DIFF [HEME] AM COMPREHENSIVE METABOLIC PN,CMP [CHEM] AM INR,PT,PROTHROMBIN TIME [COAG] AM MANUAL DIFFERENTIAL QA/NC [HEME] Routine - Plan Plan:: discussed findings with patient. Will keep her inpatient for at least another day. Will have her see dietary regarding her diarrhea as well. All questions were answered.
[2018-06-08 07:22] LABS: CHLORIDE,CL 105 mmol/L (98-107); SODIUM,NA 136 mmol/L (136-145)
[2018-06-08 07:23] LABS: ANION GAP 14.4 mmol/L (10-20)
[2018-06-08] MEDS ORDERED: Phytonadione ORAL 2.5mg/2.5ml Soln Simple Syrup U/D PO ONE (07:57)
[2018-06-08] MEDS: Magnesium Oxide 400 MG Tab PO SCH ×2 (08:50→20:25)
[2018-06-08] MEDS: Metoprolol Succinate 50 MG Tab.ER PO SCH (08:51)
[2018-06-08] MEDS: Spironolactone 25 MG Tab PO SCH (08:51)
[2018-06-08] MEDS: Famotidine 20 MG Tab PO SCH ×2 (08:51→20:25)
[2018-06-08] MEDS: Pantoprazole 40 MG Tab.CR PO SCH (08:51)
[2018-06-09] MEDS: Sodium Chloride 0.9% with KCl 1,000 ML IV SCH ×2 (02:31→11:48)
[2018-06-09 07:25] LABS: CHLORIDE,CL 105 mmol/L (98-107); SODIUM,NA 135 mmol/L (136-145)
[2018-06-09 07:27] LABS: ANION GAP 11.7 mmol/L (10-20)
[2018-06-09] MEDS: Magnesium Oxide 400 MG Tab PO SCH (08:20)
[2018-06-09] MEDS: Spironolactone 25 MG Tab PO SCH (08:20)
[2018-06-09] MEDS: Famotidine 20 MG Tab PO SCH (08:20)
[2018-06-09] MEDS: Pantoprazole 40 MG Tab.CR PO SCH (08:20)
[2018-06-09] MEDS: Metoprolol Succinate 50 MG Tab.ER PO SCH (08:20)
--- NOTE | 2018-06-09 10:40 | PCM.PN ---
- General Info Date of Service: 06/09/18 Admission Dx/Problem (Free Text): Pt. continues to have diarrhea. Had had approx. 4-5 loose stools in the past 24 hours. She is continuing to get IV NS with 40meq kcl at 125ml/hr. She has been up ambulating. Her INR continues to be elevated, despite not being on coumadin at this time, likely secondary to secretory diarrhea and loss of vitamin K. This has responded to oral vitamin K. She has not had any bloody stools and not other signs of overt blood loss. Functional Status: Reports: Pain Controlled - Review of Systems General: Reports: No Symptoms HEENT: Reports: No Symptoms Pulmonary: Reports: No Symptoms Cardiovascular: Reports: No Symptoms Gastrointestinal: Reports: Diarrhea, Nausea, Other (cramping) Genitourinary: Reports: No Symptoms Musculoskeletal: Reports: No Symptoms Skin: Reports: No Symptoms Neurological: Reports: No Symptoms Psychiatric: Reports: No Symptoms - Patient Data Vitals - Most Recent: Last Vital Signs Temp 36.5 C 06/09/18 09:59 Pulse 75 06/09/18 09:59 Resp 18 06/09/18 09:59 BP 112/54 L 06/09/18 09:59 Pulse Ox 98 06/09/18 09:59 Weight - Most Recent: 80.286 kg I&O - Last 24 Hours: Intake & Output 06/08/18 06/09/18 06/09/18 22:59 06:59 14:59 Intake Total 120 500 100 Output Total 5 Balance 120 495 100 Lab Results Last 24 Hours: Laboratory Results - last 24 hr 06/09/18 06/09/18 Range/Units 06:22 06:22 PT 42.2 H D (9.6-11.4) SEC INR 4.1 H (2.0-3.5) Sodium 135 L (136-145) mmol/L Potassium 4.7 (3.5-5.1) mmol/L Chloride 105 (98-107) mmol/L Carbon Dioxide 23 (21-32) mmol/L Anion Gap 11.7 (10-20) mmol/L BUN 7 (7-18) mg/dL Creatinine 0.5 L (0.55-1.02) mg/dL Est Cr Clr Drug Dosing 72.68 mL/min Estimated GFR (MDRD) > 60 Glucose 98 (74-106) mg/dL Calcium 8.4 L (8.5-10.1) mg/dL Med Orders - Current: Current Medications Diphenoxylate HCl/Atropine (Lomotil 0.025-2.5 Mg) 2 tab PO QID PRN PRN Reason: Diarrhea Last Admin: 06/08/18 06:32 Dose: 2 tab Famotidine (Pepcid) 20 mg PO BID [facility] Last Admin: 06/09/18 08:20 Dose: 20 mg Furosemide (Lasix) 20 mg PO DAILY PRN PRN Reason: Other Last Admin: 06/06/18 20:38 Dose: 20 mg Potassium Chloride/Sodium Chloride (Normal Saline With 40 Meq Kcl) 1,000 mls @ 125 mls/hr IV ASDIRECTED [facility] Last Admin: 06/09/18 02:31 Dose: 125 mls/hr Loperamide HCl (Imodium) 4 mg PO Q6H PRN PRN Reason: Diarrhea Magnesium Oxide (Magnesium Oxide) 400 mg PO BID [facility] Last Admin: 06/09/18 08:20 Dose: 400 mg Metoprolol Succinate (Toprol Xl) 50 mg PO DAILY [facility] Last Admin: 06/09/18 08:20 Dose: 50 mg Ondansetron HCl (Zofran) 4 mg IVPUSH Q8H PRN PRN Reason: Nausea Last Admin: 06/09/18 08:20 Dose: 4 mg Pantoprazole Sodium (Protonix) 40 mg PO DAILY [facility] Last Admin: 06/09/18 08:20 Dose: 40 mg Prochlorperazine Maleate (Compazine) 5 mg PO Q6H PRN PRN Reason: Nausea/Vomiting Last Admin: 06/09/18 08:20 Dose: 5 mg Spironolactone (Aldactone) 25 mg PO DAILY [facility] Last Admin: 06/09/18 08:20 Dose: 25 mg Discontinued Medications Diphenoxylate HCl/Atropine (Lomotil 0.025-2.5 Mg) 1 tab PO QID PRN PRN Reason: Diarrhea Loperamide HCl (Imodium) 2 mg PO Q4H PRN PRN Reason: Diarrhea Phytonadione (Aquamephyton) 2.5 mg PO ONETIME ONE Stop: 06/08/18 07:58 Last Admin: 06/08/18 08:51 Dose: 2.5 mg - Exam General: Alert, Oriented HEENT: Pupils Equal, Pupils Reactive, EOMI, Mucous Membr. Moist/[place] Neck: Supple Lungs: Clear to Auscultation, Normal Respiratory Effort Cardiovascular: Regular Rate, Regular Rhythm GI/Abdominal Exam: Normal Bowel Sounds, Soft, Non-Tender, No Organomegaly, No Distention, No Abnormal Bruit Extremities: Normal Inspection, Normal Range of Motion, Non-Tender, No Pedal Edema, Normal Capillary Refill Peripheral Pulses: 3+: Radial (L), Dorsalis Pedis (L), Dorsalis Pedis (R) Skin: Warm, Dry, Intact Neurological: No New Focal Deficit Psy/Mental Status: Alert, Normal Affect, Depressed - Problem List Review Problem List Initiated/Reviewed/Updated: Yes - My Orders Last 24 Hours: My Active Orders 06/09/18 07:27 Daily Weight [Height and Weight] [RC] 07 - Assessment Assessment:: 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 - Plan Plan:: I contacted oncology again. Advised continuing the lomotil and immodium. Inquired about octreotide. She advised starting tincture of opium first. Will continue to closely monitor INR and electrolytes. All questions were answered.
--- NOTE | 2018-06-14 10:42 | PCM.DCSUM1 ---
Discharge Summary - Hospital Course Free Text/Narrative:: Decision has been made to transition pt. from acute care to observation. Pt. continues to experience diarrhea, approx. 4-5 episodes per day. Denies any fever or chills. She continues to have coagulopathy associated with this severe secretory diarrhea. She is maxed out on her lomotil and loperamide. Oncology has been consulted again regarding her continued diarrhea, and to see if octreotide would be an option for this patient. It was suggested that pt. have a trial of tincture of opium first. Pt. kidney function and electrolytes are all WNL. She has had a normal white count during her stay. Diagnosis: Stroke: No - Discharge Data Discharge Date: 06/09/18 Discharge Disposition: DC/Tfer to Acute Hospital 02 Condition: Fair - Patient Summary/Data Consults: Consultations 06/06/18 17:23 Consult to Physical Therapy [PT Evaluation and Treatment] [CONS] Routine 06/07/18 18:32 Consult to Dietary [Consult to [employer] Research Scientist] [CONS] Routine - Discharge Plan Home Medications: Home Meds Metoprolol Succinate 1 tab PO DAILY 03/29/18 [History] Famotidine [Pepcid] 20 mg PO BID 03/30/18 [History] Furosemide 20 mg PO DAILY PRN 03/30/18 [History] Magnesium Oxide 400 mg PO BID 03/30/18 [History] Acetaminophen 325 - 650 mg PO Q4H PRN 06/01/18 [History] Prochlorperazine [Compazine] 10 mg PO Q6H PRN 06/01/18 [History] Spironolactone [Aldactone] 25 mg PO DAILY 06/01/18 [History] Ondansetron [Zofran] 4 mg IVPUSH Q6H PRN #20 vial 06/03/18 [Rx] Pantoprazole [ProTONIX] 40 mg PO DAILY 06/03/18 [History] Diphenoxylate HCl/Atropine [Lomotil Tablet] 1 each PO BID PRN 06/06/18 [History] Loperamide [Imodium] 2 mg PO Q4H PRN 06/06/18 [History] Ondansetron [Zofran ODT] 4 mg PO Q6H PRN 06/06/18 [History] Sodium Chloride 0.9% with KCl [Normal Saline with 40 mEq KCl] 1,000 ml IV ASDIRECTED 06/06/18 [History] - Discharge Summary/Plan Comment DC Time >30 min.: Yes - General Info Date of Service: 06/09/18 Functional Status: Reports: Pain Controlled - Review of Systems General: Reports: Weakness, Fatigue, Malaise HEENT: Reports: No Symptoms Pulmonary: Reports: No Symptoms Cardiovascular: Reports: No Symptoms Gastrointestinal: Reports: Diarrhea, Other (passing gas. ) Skin: Reports: No Symptoms Neurological: Reports: No Symptoms Psychiatric: Reports: No Symptoms - Patient Data Vitals - Most Recent: Last Vital Signs Temp 37.1 C 06/09/18 14:00 Pulse 81 06/09/18 14:00 Resp 18 06/09/18 14:00 BP 127/65 06/09/18 14:00 Pulse Ox 100 06/09/18 14:00 Weight - Most Recent: 80.286 kg Med Orders - Current: Current Medications Discontinued Medications Diphenoxylate HCl/Atropine (Lomotil 0.025-2.5 Mg) 1 tab PO QID PRN PRN Reason: Diarrhea Diphenoxylate HCl/Atropine (Lomotil 0.025-2.5 Mg) 2 tab PO QID PRN PRN Reason: Diarrhea Last Admin: 06/08/18 06:32 Dose: 2 tab Famotidine (Pepcid) 20 mg PO BID [facility] Last Admin: 06/09/18 08:20 Dose: 20 mg Furosemide (Lasix) 20 mg PO DAILY PRN PRN Reason: Other Last Admin: 06/06/18 20:38 Dose: 20 mg Potassium Chloride/Sodium Chloride (Normal Saline With 40 Meq Kcl) 1,000 mls @ 125 mls/hr IV ASDIRECTED [facility] Last Admin: 06/09/18 11:48 Dose: 125 mls/hr Loperamide HCl (Imodium) 2 mg PO Q4H PRN PRN Reason: Diarrhea Loperamide HCl (Imodium) 4 mg PO Q6H PRN PRN Reason: Diarrhea Magnesium Oxide (Magnesium Oxide) 400 mg PO BID [facility] Last Admin: 06/09/18 08:20 Dose: 400 mg Metoprolol Succinate (Toprol Xl) 50 mg PO DAILY [facility] Last Admin: 06/09/18 08:20 Dose: 50 mg Ondansetron HCl (Zofran) 4 mg IVPUSH Q8H PRN PRN Reason: Nausea Last Admin: 06/09/18 08:20 Dose: 4 mg Pantoprazole Sodium (Protonix) 40 mg PO DAILY [facility] Last Admin: 06/09/18 08:20 Dose: 40 mg Phytonadione (Aquamephyton) 2.5 mg PO ONETIME ONE Stop: 06/08/18 07:58 Last Admin: 06/08/18 08:51 Dose: 2.5 mg Prochlorperazine Maleate (Compazine) 5 mg PO Q6H PRN PRN Reason: Nausea/Vomiting Last Admin: 06/09/18 08:20 Dose: 5 mg Spironolactone (Aldactone) 25 mg PO DAILY [facility] Last Admin: 06/09/18 08:20 Dose: 25 mg - Exam General: Reports: Alert, Oriented Lungs: Reports: Clear to Auscultation, Normal Respiratory Effort Cardiovascular: Reports: Regular Rate, Regular Rhythm GI/Abdominal Exam: Normal Bowel Sounds, Soft, Non-Tender, No Distention (Female) Exam: Deferred Rectal (Female) Exam: Deferred Back Exam: Reports: Normal Inspection, Full Range of Motion Extremities: Normal Inspection, Normal Range of Motion, Non-Tender, No Pedal Edema, Normal Capillary Refill Skin: Reports: Warm, Dry, Intact Neurological: Reports: No New Focal Deficit Psy/Mental Status: Reports: Alert, Normal Affect, Normal Mood Physical Findings Comments:: Dominic Farmer is assuming care and will be transitioning to the patient's PCP. Advise checking INR daily and treat coagulopathy as needed with vitamin K. Again , I spoke with oncology who suggested tincture of opium and possibly ocreotide. All questions were answered.
== END 2018-06-09 14:36 | disposition short-term general hospital (02) | DRG 395 ==
LOC: VM.MS 17:00
PROVIDERS: ADMIT Physician Assistant; ATTEND Physician Assistant
DX: K52.1 Toxic gastroenteritis and colitis (principal); T45.1X5A Adverse effect of antineoplastic and immunosuppressive drugs, initial encounter; R79.1 Abnormal coagulation profile
CPT/HCPCS: 36415; 80048; 80053; 85025; 85610; 97164-GP; 97530-GP; A9270-GY; J2405; J3480; Q0164

== ENCOUNTER 2018-06-09 09:59 | Inpatient (IN) | payer MEDICARE, BC ==
--- NOTE | 2018-06-09 17:06 | PCM.HP ---
H&P History of Present Illness - General Date of Service: 06/09/18 Admit Problem/Dx: Admission Diagnosis/Problem Admission Diagnosis/Problem Weakness Deconditioning Malnutrition Hypercoagulable state Malignant Neoplasm of the Ascending Colon Metastatic Colon CA Chronic diastolic CHF DVT History of PE Source of Information: Patient, Family, Old Records, RN, RN Notes Reviewed History Limitations: Reports: No Limitations - History of Present Illness Initial Comments - Free Text/Narative: I was asked by the patient's family to assumed care of this patient today, 06/09. The patient is known to me as I originally saw her in the ED at [facility] on March 23, 2018. She underwent a CT scan of her Abd/Pelvis and a colonic mass was seen on scan. She was transferred to [facility] and went through extensive workup of the colonic mass. Prior Oncology history from [facility]: Transferred to [facility] from [place] March 23, 2018 to with a diagnosis of a PE and bowel obstruction with a cecal mass measuring up to 10cm , satellite adenopathy up to 2.3cm, mesenteric inflammation and one small liver hypodensity (subcm). Exploratory laparotomy 03/25/18 reported a very large right colonic mass causing obstruction of the cecum with necrosis, enlarged lymph nodes and a small lesion in the liver which was biopsied. Right colectomy performed as well. 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 pT3,pN1a. Liver biopsy negative, omentum negative. PET/CT 04/25/2018 reported negative. Patient did fairly well through surgery and was able to be discharge back to the assisted living facility 04/04/2018. Since being home, she states she was doing quite well. She did not have any post surgical problems. She was eating and drinking ok. BM's were mostly back to normal and at baseline. She continued to follow up with Oncology. She underwent her first chemo treatment 05/16/2018. Patient was started on Xelox, to begin with [place] 1500mg and increase to 2000mg BID 2:1 if tolerated, and oxaliplatin 85mg/m2 increase to 130mg/m2 if tolerated. Patient was seen by Dr. Ambros for a follow up on 05/30 and stated she started have diarrhea with 3-4 stools per day, increased fatigue, and poor appetitie. She did undergo another round of cancer treatment 05/30. Her fatigue , diarrhea, poor appetite has persisted. The patient spoke with [facility] on 06/01 and it was recommend the patient be seen in the ED at [facility]. Upon admission, the patient had an elevate INR and low potassium level. She was given Vit K and KCL IVF. Her INR the next day was normal at 2.0. He K had also increased. The patients labs were recheck the next day and her INR was 5.5 and K of 3.0. If was though according to provider notes the INR and K was due to her diarrhea. Her coumadin had been held since admission. On 06/04, her INR had went up to 9.5. She was given Vit K again. [facility] was not advised. On 06/05 INR was 5.9 and K down to 2.7. IVF with KCL continued at this point. 06/06 showed an INR of 11.4 and K of 3.0. It appears Vit K was given again. INR on 06/07 5.3 and K had normalized. INR up to 9.7 and Vit K was given again. INR today is 4.1. Patient has not had any signs of bleeding according to records and patient report. Today, the patient states she still feels weak. Her appetite remains poor. Her diarrhea has improved. She denies any chest pain or SOB. No abdominal pain. No focal neurological deficits. Patient denies any pain. - Related Data Allergies/Adverse Reactions: Allergies Allergy/AdvReac Type Severity Reaction Status Date / Time cephalexin Allergy Hives Verified 06/01/18 12:43 codeine Allergy Hives Verified 06/01/18 12:43 latex Allergy Rash Verified 06/01/18 12:43 Sulfa (Sulfonamide Allergy Swelling Verified 06/01/18 12:43 Antibiotics) Home Medications: Home Meds Metoprolol Succinate 1 tab PO DAILY 03/29/18 [History] Famotidine [Pepcid] 20 mg PO BID 03/30/18 [History] Furosemide 20 mg PO DAILY PRN 03/30/18 [History] Magnesium Oxide 400 mg PO BID 03/30/18 [History] Acetaminophen 325 - 650 mg PO Q4H PRN 06/01/18 [History] Prochlorperazine [Compazine] 10 mg PO Q6H PRN 06/01/18 [History] Spironolactone [Aldactone] 25 mg PO DAILY 06/01/18 [History] Ondansetron [Zofran] 4 mg IVPUSH Q6H PRN #20 vial 06/03/18 [Rx] Pantoprazole [ProTONIX] 40 mg PO DAILY 06/03/18 [History] Diphenoxylate HCl/Atropine [Lomotil Tablet] 1 each PO BID PRN 06/06/18 [History] Loperamide [Imodium] 2 mg PO Q4H PRN 06/06/18 [History] Ondansetron [Zofran ODT] 4 mg PO Q6H PRN 06/06/18 [History] Sodium Chloride 0.9% with KCl [Normal Saline with 40 mEq KCl] 1,000 ml IV ASDIRECTED 06/06/18 [History] Past Medical History Cardiovascular History: Reports: Heart Failure, High Cholesterol Respiratory History: Reports: PE, Other (See Below) Other Respiratory History: dyspnea Oncologic (Cancer) History: Reports: Colon - Past Surgical History GI Surgical History: Reports: Other (See Below) Other GI Surgeries/Procedures: bowel surgery H&P Review of Systems - Review of Systems: Review Of Systems: See Below General: Reports: Weakness, Fatigue. Denies: Fever, Chills Pulmonary: Denies: Shortness of Breath, Cough Cardiovascular: Denies: Chest Pain, Palpitations Gastrointestinal: Reports: Nausea. Denies: Abdominal Pain, Vomiting Skin: Reports: No Symptoms Neurological: Reports: No Symptoms Exam - Exam Exam: See Below - Vital Signs Weight: 80.286 kg - Exam Quality Assessment: DVT Prophylaxis. No: Skin Breakdown General: Alert, Oriented, Cooperative, Mild Distress Lungs: Clear to Auscultation, Normal Respiratory Effort Cardiovascular: Regular Rate, Regular Rhythm GI/Abdominal Exam: Normal Bowel Sounds, Soft, Non-Tender Peripheral Pulses: 2+: Radial (L), Radial (R) Skin: Warm, Dry, Intact Neuro Extensive - Mental Status: Alert, Oriented x3 *Q Meaningful Use (ADM) - VTE *Q VTE Mechanical Contraindications *Q: At Risk for Falls - Problem List (1) Weakness SNOMED Code(s): 21275062 ICD Code: R53.1 - WEAKNESS Status: Acute Priority: Medium Current Visit : Yes (2) Physical deconditioning SNOMED Code(s): 44096291344321 ICD Code: R53.81 - OTHER MALAISE Status: Acute Priority: Medium Current Visit: Yes (3) Malignant neoplasm of ascending colon Status: Chronic Current Visit: No (4) DVT (deep venous thrombosis) SNOMED Code(s): 517050988 ICD Code: I82.409 - ACUTE EMBOLISM AND THOMBOS UNSP DEEP VN UNSP LOWER EXTREMITY Status: Chronic Current Visit: No Qualifiers: DVT location: lower extremity Affected thrombotic vein of extremity: unspecified vein of extremity Chronicity: unspecified Laterality: unspecified laterality Qualified Code(s): I82.409 - Acute embolism and thrombosis of unspecified deep veins of unspecified lower extremity (5) Malnutrition SNOMED Code(s): 78707615 ICD Code: E46 - UNSPECIFIED PROTEIN-CALORIE MALNUTRITION Status: Chronic Priority: Medium Current Visit: Yes Qualifiers: Malnutrition type: protein-calorie malnutrition Protein-calorie malnutrition severity: severe Qualified Code(s): E43 - Unspecified severe protein-calorie malnutrition (6) Heart failure SNOMED Code(s): 72044691 ICD Code: I50.9 - HEART FAILURE, UNSPECIFIED Status: Chronic Priority: Low Current Visit: No Qualifiers: Heart failure type: diastolic Heart failure chronicity: chronic Qualified Code(s): I50.32 - Chronic diastolic (congestive) heart failure (7) History of pulmonary embolus (PE) SNOMED Code(s): 472419896 ICD Code: Z86.711 - PERSONAL HISTORY OF PULMONARY EMBOLISM Status: Chronic Priority: Low Current Visit: No (8) Metastatic colon cancer in female SNOMED Code(s): 040451796, 754227108 ICD Code: C18.9 - MALIGNANT NEOPLASM OF COLON, UNSPECIFIED Status: Chronic Priority: Medium Current Visit: No Problem List Initiated/Reviewed/Updated: Yes Orders Last 24hrs: Active Orders 24 hr Category Date Time Status Admission Status [Patient Status] [ADT] Routine ADT 06/09/18 14:36 Active Code Status [Resuscitation Status] Routine Resus Stat 06/09/18 15:45 Ordered Assessment/Plan Comment:: 87-year-old female patient with a past medical history of malignant neoplasm of the ascending colon stage III, metastatic colon cancer, chronic diastolic heart failure, hypercoagulable state, history of DVT and PE, and severe malnutrition is admitted to the swing bed unit today per the request of the family for a ongoing diagnosis of weakness and deconditioning, poor appetite. The patient is a code 2 per family and patient's request. The patient does not want to be transferred to a higher level of care should the need arise. We will continue the patient with physical and occupational therapy respectively. The patient will be switched to regular IV fluids without the potassium as her potassium level is normal today. We will continue to monitor the patient's INRs. I will consult the [facility] for further consultation on managing INR in a patient on chemotherapy. The patient's oncologist Dr. Nguyễn will also be consulted. I would like the patient to be up out of bed for every meal. I also encourage the nursing staff to ambulate the patient in the hallways as much as possible. The patient's plan is to return to [facility] living when medically stable. The patient and I had a long discussion today in regards to quality of life and chemotherapy. The patient has made an independent decision not to continue any more chemotherapy. The patient wants to be well enough to be able to return to her assisted living home. Will stop Pepcid. Continue with Antidiarrheals PRN. May consider Questran. Recheck labs in AM. We'll consult the hospital dietitian for the patient's malnutrition. The recommendation from the [facility] dietitian the patient should be on 2400 kcal per day, 85 g of protein, as well as 2400 mL of fluid per day. NOTE: This patient was seen and examined by me as an [facility] provider. Dr. Aury Rod is aware of this admission.
[2018-06-09] MEDS ORDERED: Ondansetron 4 MG Tab.DIS PO PRN (18:31)
[2018-06-09] MEDS ORDERED: Acetaminophen 325 MG Tab PO PRN (18:31)
[2018-06-09] MEDS ORDERED: Prochlorperazine 5 MG Tab PO PRN (18:31)
[2018-06-09] MEDS: Sodium Chloride 0.9% 1,000 ML IV SCH (18:47)
[2018-06-09] MEDS: Magnesium Oxide 400 MG Tab PO SCH (19:27)
[2018-06-09] MEDS: Temazepam 15 MG Cap PO PRN (19:27)
[2018-06-10] MEDS ORDERED: Calcium Carbonate 750 MG Tab.Chew PO PRN (03:29)
[2018-06-10] MEDS: Omeprazole 20 MG Cap.CR PO SCH (06:18)
[2018-06-10] MEDS ORDERED: Pantoprazole 40 MG Tab.CR PO SCH (07:00)
[2018-06-10 08:29] LABS: CHLORIDE,CL 104 mmol/L (98-107); SODIUM,NA 133 mmol/L (136-145)
[2018-06-10] MEDS: Metoprolol Succinate 50 MG Tab.ER PO SCH (08:38)
[2018-06-10] MEDS: Magnesium Oxide 400 MG Tab PO SCH ×2 (08:38→19:34)
[2018-06-10] MEDS: Spironolactone 25 MG Tab PO SCH (08:38)
[2018-06-10 08:42] LABS: ANION GAP 10.6 mmol/L (10-20)
[2018-06-10] MEDS ORDERED: Magnesium Sulfate/Water 2 GM in Premix Bag 1 BAG IV ONE (13:33)
[2018-06-10] MEDS: Sodium Chloride 0.9% 1,000 ML IV SCH (13:43)
[2018-06-10] MEDS: Loperamide 2 MG Cap PO PRN ×2 (14:12→19:34)
[2018-06-10] MEDS: Temazepam 15 MG Cap PO PRN (19:33)
[2018-06-10] MEDS: Atropine/Diphenoxylate 0.025-2.5 MG Tab PO PRN (19:34)
[2018-06-11] MEDS: Omeprazole 20 MG Cap.CR PO SCH (06:23)
[2018-06-11] MEDS: Magnesium Oxide 400 MG Tab PO SCH ×2 (08:07→19:50)
[2018-06-11] MEDS: Spironolactone 25 MG Tab PO SCH (08:07)
[2018-06-11] MEDS: Metoprolol Succinate 50 MG Tab.ER PO SCH (08:09)
[2018-06-11] MEDS: Sodium Chloride 0.9% 1,000 ML IV SCH (08:12)
[2018-06-11] MEDS: Temazepam 15 MG Cap PO PRN (19:50)
[2018-06-11] MEDS: Atropine/Diphenoxylate 0.025-2.5 MG Tab PO PRN (19:50)
[2018-06-12] MEDS: Sodium Chloride 0.9% 1,000 ML IV SCH ×2 (04:39→21:21)
[2018-06-12] MEDS: Omeprazole 20 MG Cap.CR PO SCH (06:13)
[2018-06-12] MEDS: Spironolactone 25 MG Tab PO SCH (08:05)
[2018-06-12] MEDS: Magnesium Oxide 400 MG Tab PO SCH ×2 (08:05→21:39)
[2018-06-12] MEDS: Metoprolol Succinate 50 MG Tab.ER PO SCH (08:06)
[2018-06-12] MEDS: Ondansetron 4 MG/2 ML SDV IVPUSH PRN (14:10)
[2018-06-12 18:09] LABS: CHLORIDE,CL 99 mmol/L (98-107)
[2018-06-12 18:10] LABS: ANION GAP 12.8 mmol/L (10-20); SODIUM,NA 129 mmol/L (136-145)
[2018-06-12] MEDS ORDERED: Sodium Chloride 0.9% 1,000 ML IV ONE (18:16)
--- NOTE | 2018-06-12 18:23 | PCM.SN ---
- Free Text/Narrative Note: Call to patient room by family. They feel the patient seems more lethargic and having fluid retention. Assessment reveals somewhat lethargic patient. Responds appropriately when asked simple questions. Some BLE edema. Lungs clear. Abd appears somewhat distended. Patient denies any pain. No focal neurological problems. Patient denies any chest pain or SOB. No abdominal complaints. Will get a CT scan of the Abd/Pelvis for bloating and history of colon CA. Recheck labs and UA. Patient may be dehydrated despite continuous IVF.
--- NOTE | 2018-06-12 18:25 | CT ---
[id number] CT/CT Abdomen Pelvis WO IV EXAM: ABDOMEN AND PELVIS CT WITHOUT CONTRAST INDICATION: Abdominal pain, nausea and vomiting. COMPARISON: March 30, 2018. DISCUSSION: There is reflux of contrast into a mildly dilated distal esophagus. Small to moderate hiatus hernia. Fluid-filled dilated stomach and small bowel with the small bowel measuring up to 4.5 cm in diameter. There is mild swirling of the mesentery of the right lower quadrant and transition to decompressed bowel (image 89 series 2) compatible with obstruction. Some of the involved mesentery is edematous and a small bowel loop distal to the point of obstruction is thick-walled which could be seen in the context of infectious, inflammatory or ischemic enteritis. Enteric anastomosis with the colon in the right mid abdomen (image 81 series 2). The gallbladder is mildly distended, contains calculi and has wall thickening and surrounding edema. These findings could be seen in the context of cholecystitis, but may simply relate to underlying liver disease or the apparent generalized fluid overload with small bilateral pleural effusions, small ascites and mild to moderate body wall edema. Coronary artery calcifications. Unenhanced images of the liver, spleen, pancreas, adrenal glands, kidneys and urinary bladder are unremarkable. Colonic diverticulosis. The colon is otherwise normal in appearance. Left hip arthroplasty. Chronic right rib fractures. Degenerative changes in the spine. Grade 1 L4-L5 degenerative spondylolisthesis. Stable right inguinal seroma measuring about 7.5 x 3.6 cm. IMPRESSION: 1. Mid to distal small bowel obstruction with associated mild swirling of the mesentery, mesenteric edema and wall thickening in some of the loops distal to the point of obstruction. Correlation with clinical signs and symptoms is suggested to help evaluate for associated bowel ischemia. No pneumatosis or free air. 2. Generalized volume overload with small pleural effusions, mild to moderate body wall edema and small ascites. 3. Cholelithiasis, mild gallbladder distention, gallbladder wall thickening and small pericholecystic fluid may relate to the underlying generalized fluid overload, but could be seen in the context of cholecystitis. HIDA scan could further evaluate if clinical signs and symptoms are equivocal for acute cholecystitis. Clarence Soriano MD 06/12/18 [id number] Thank you for allowing us to participate in the care of your patient.
[2018-06-12] MEDS ORDERED: Metoclopramide 10 MG/2 ML SDV IVPUSH ONE (18:40)
[2018-06-12] MEDS: Temazepam 15 MG Cap PO PRN (21:39)
[2018-06-13] MEDS: Sodium Chloride 0.9% 1,000 ML IV SCH ×3 (05:27→21:12)
[2018-06-13] MEDS: Omeprazole 20 MG Cap.CR PO SCH (06:43)
[2018-06-13] MEDS: Ondansetron 4 MG/2 ML SDV IVPUSH PRN ×2 (07:31→13:02)
--- NOTE | 2018-06-13 07:55 | PCM.SN ---
- Free Text/Narrative Note: Call by nursing staff this morning. Patient had a large emesis that appeared to be stool. Orders given for NG placement, Reglan, Zofran, and Protonix IV. Patient states she is feeling better after the emesis. NG immediately had 600cc of kelsey foul smelling liquid. Will keep patient NPO for now. Will consider re- scanning abdomen in the next couple of days after things settle down. Family contacted with patient's issues this morning. Family declines offer to transfer. They would like her medically managed here. Will continue monitor closely.
[2018-06-13] MEDS: Magnesium Oxide 400 MG Tab PO SCH ×2 (09:10→20:00)
[2018-06-13] MEDS: Spironolactone 25 MG Tab PO SCH (09:11)
[2018-06-13] MEDS: Metoprolol Succinate 50 MG Tab.ER PO SCH (09:11)
[2018-06-13] MEDS: Pantoprazole 40 MG Vial IVPUSH SCH ×2 (09:32→19:53)
[2018-06-13] MEDS: Metoclopramide 10 MG/2 ML SDV IVPUSH SCH ×3 (09:32→19:53)
[2018-06-13] MEDS: Sodium Chloride 0.9% 10 ML Syringe FLUSH PRN ×3 (09:32→19:58)
[2018-06-13 10:33] LABS: CHLORIDE,CL 101 mmol/L (98-107); SODIUM,NA 130 mmol/L (136-145)
[2018-06-13 10:34] LABS: ANION GAP 10.9 mmol/L (10-20)
--- NOTE | 2018-06-13 13:43 | PCM.SN ---
- Free Text/Narrative Note: Called and spoke with Moiz Sidhu, patient's POA. Moiz updated on current health states of this patient. Discussed options of continued care. Discussed option of being transferred to [place] for continued medical management for SBO and supratherapeutic INR or the options of no transfer and consider Palliative care vs Hospice here at [facility]. POA states they would like to discussed this with the patient and let me know what their decision is later today.
[2018-06-14] MEDS: Metoclopramide 10 MG/2 ML SDV IVPUSH SCH ×5 (01:17→18:30)
[2018-06-14] MEDS: Sodium Chloride 0.9% 10 ML Syringe FLUSH PRN (01:18)
[2018-06-14] MEDS: Sodium Chloride 0.9% 1,000 ML IV SCH ×3 (05:42→18:15)
[2018-06-14 07:07] LABS: ANION GAP 13.6 mmol/L (10-20); CHLORIDE,CL 103 mmol/L (98-107); SODIUM,NA 133 mmol/L (136-145)
--- NOTE | 2018-06-14 07:44 | PCM.SN ---
- Free Text/Narrative Note: Met with family this morning. Updated family on patient status. Patient and family do not want any surgical intervention. Will do watchful waiting at this time. Discussed Hospice as an option versus surgery. Family would like to discuss their options. Will meet with family again later this week for updates.
[2018-06-14] MEDS ORDERED: Metoclopramide 10 MG/2 ML SDV IVPUSH SCH (07:45)
[2018-06-14] MEDS: Pantoprazole 40 MG Vial IVPUSH SCH ×3 (08:23→18:30)
[2018-06-14] MEDS: Spironolactone 25 MG Tab PO SCH (08:25)
[2018-06-14] MEDS: Omeprazole 20 MG Cap.CR PO SCH (08:25)
[2018-06-14] MEDS: Magnesium Oxide 400 MG Tab PO SCH ×2 (08:25→21:00)
[2018-06-14] MEDS: Metoprolol Succinate 50 MG Tab.ER PO SCH (08:26)
[2018-06-14] MEDS ORDERED: Furosemide 20 MG/2 ML VIAL IV ONE (18:08)
[2018-06-15] MEDS: Sodium Chloride 0.9% 10 ML Syringe FLUSH PRN ×2 (01:02→06:35)
[2018-06-15] MEDS: Metoclopramide 10 MG/2 ML SDV IVPUSH SCH ×2 (01:02→06:36)
[2018-06-15] MEDS: Sodium Chloride 0.9% 1,000 ML IV SCH (02:43)
[2018-06-15] MEDS: Pantoprazole 40 MG Vial IVPUSH SCH (06:35)
[2018-06-15] MEDS: Omeprazole 20 MG Cap.CR PO SCH (06:36)
[2018-06-15] MEDS: Spironolactone 25 MG Tab PO SCH (08:11)
[2018-06-15] MEDS: Magnesium Oxide 400 MG Tab PO SCH (08:11)
[2018-06-15] MEDS: Metoprolol Succinate 50 MG Tab.ER PO SCH (08:11)
[2018-06-15 08:51] LABS: CHLORIDE,CL 104 mmol/L (98-107); SODIUM,NA 136 mmol/L (136-145)
--- NOTE | 2018-06-15 11:06 | PCM.DCSUM1 ---
Discharge Summary - Hospital Course HPI Initial Comments: I was asked by the patient's family to assumed care of this patient today, 06/09. The patient is known to me as I originally saw her in the ED at [facility] on March 23, 2018. She underwent a CT scan of her Abd/Pelvis and a colonic mass was seen on scan. She was transferred to [facility] and went through extensive workup of the colonic mass. Prior Oncology history from [facility]: Transferred to [facility] from [place] March 23, 2018 to with a diagnosis of a PE and bowel obstruction with a cecal mass measuring up to 10cm , satellite adenopathy up to 2.3cm, mesenteric inflammation and one small liver hypodensity (subcm). Exploratory laparotomy 03/25/18 reported a very large right colonic mass causing obstruction of the cecum with necrosis, enlarged lymph nodes and a small lesion in the liver which was biopsied. Right colectomy performed as well. 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 pT3,pN1a. Liver biopsy negative, omentum negative. PET/CT 04/25/2018 reported negative. Patient did fairly well through surgery and was able to be discharge back to the assisted living facility 04/04/2018. Since being home, she states she was doing quite well. She did not have any post surgical problems. She was eating and drinking ok. BM's were mostly back to normal and at baseline. She continued to follow up with Oncology. She underwent her first chemo treatment 05/16/2018. Patient was started on Xelox, to begin with [place] 1500mg and increase to 2000mg BID 2:1 if tolerated, and oxaliplatin 85mg/m2 increase to 130mg/m2 if tolerated. Patient was seen by Dr. Nguyễn for a follow up on 05/30 and stated she started have diarrhea with 3-4 stools per day, increased fatigue, and poor appetitie. She did undergo another round of cancer treatment 05/30. Her fatigue , diarrhea, poor appetite has persisted. The patient spoke with [facility] on 06/01 and it was recommend the patient be seen in the ED at [facility]. Upon admission, the patient had an elevate INR and low potassium level. She was given Vit K and KCL IVF. Her INR the next day was normal at 2.0. He K had also increased. The patients labs were recheck the next day and her INR was 5.5 and K of 3.0. If was though according to provider notes the INR and K was due to her diarrhea. Her coumadin had been held since admission. On 06/04, her INR had went up to 9.5. She was given Vit K again. Oncology [facility] and transfer was not advised. On 06/05 INR was 5.9 and K down to 2.7. IVF with KCL continued at this point. 06/06 showed an INR of 11.4 and K of 3.0. It appears Vit K was given again. INR on 06/07 5.3 and K had normalized. INR up to 9.7 and Vit K was given again. INR today is 4.1. Patient has not had any signs of bleeding according to records and patient report. Today, the patient states she still feels weak. Her appetite remains poor. Her diarrhea has improved. She denies any chest pain or SOB. No abdominal pain. No focal neurological deficits. Patient denies any pain. Diagnosis: Stroke: No Modified Isidro Scale: No Symptoms at All Modified Isidro Scale Score: 0 - Discharge Data Discharge Date: 06/15/18 Discharge Disposition: Admitted As Inpatient 67 Condition: Poor - Discharge Diagnosis/Problem(s) (1) Weakness SNOMED Code(s): 49463471 ICD Code: R53.1 - WEAKNESS Status: Acute Priority: Medium (2) Physical deconditioning SNOMED Code(s): 24142520348600 ICD Code: R53.81 - OTHER MALAISE Status: Acute Priority: Medium (3) Malignant neoplasm of ascending colon Status: Chronic (4) DVT (deep venous thrombosis) SNOMED Code(s): 578086506 ICD Code: I82.409 - ACUTE EMBOLISM AND THOMBOS UNSP DEEP VN UNSP LOWER EXTREMITY Status: Chronic Qualifiers: DVT location: lower extremity Affected thrombotic vein of extremity: unspecified vein of extremity Chronicity: unspecified Laterality: unspecified laterality Qualified Code(s): I82.409 - Acute embolism and thrombosis of unspecified deep veins of unspecified lower extremity (5) Malnutrition SNOMED Code(s): 64197350 ICD Code: E46 - UNSPECIFIED PROTEIN-CALORIE MALNUTRITION Status: Chronic Priority: Medium Qualifiers: Malnutrition type: protein-calorie malnutrition Protein-calorie malnutrition severity: severe Qualified Code(s): E43 - Unspecified severe protein-calorie malnutrition (6) Heart failure SNOMED Code(s): 76099277 ICD Code: I50.9 - HEART FAILURE, UNSPECIFIED Status: Chronic Priority: Low Qualifiers: Heart failure type: diastolic Heart failure chronicity: chronic Qualified Code(s): I50.32 - Chronic diastolic (congestive) heart failure (7) History of pulmonary embolus (PE) SNOMED Code(s): 451853847 ICD Code: Z86.711 - PERSONAL HISTORY OF PULMONARY EMBOLISM Status: Chronic Priority: Low (8) Metastatic colon cancer in female SNOMED Code(s): 617692598, 824507139 ICD Code: C18.9 - MALIGNANT NEOPLASM OF COLON, UNSPECIFIED Status: Chronic Priority: Medium (9) Small bowel obstruction SNOMED Code(s): 771998538 ICD Code: K56.609 - UNSP INTESTNL OBST, UNSP TO PARTIAL VERSUS COMPLETE OBST Status: Acute Priority: High Onset Date: ~06/13/18 - Patient Summary/Data Consults: Consultations 06/09/18 17:53 Consult to Case Management/Bath Steward [CONS] Routine Consult to Airplane Coverer [CONS] Routine OT Evaluation and Treatment [CONS] Routine PT Evaluation and Treatment [CONS] Routine - Patient Instructions Diet: NPO Activity: Bedrest Showering/Bathing: May Shower - Discharge Plan *PRESCRIPTION DRUG MONITORING PROGRAM REVIEWED*: Not Applicable *COPY OF PRESCRIPTION DRUG MONITORING REPORT IN PATIENT JOHN: Not Applicable Home Medications: Home Meds Metoprolol Succinate 1 tab PO DAILY 03/29/18 [History] Furosemide 20 mg PO DAILY PRN 03/30/18 [History] Magnesium Oxide 400 mg PO BID 03/30/18 [History] Acetaminophen 325 - 650 mg PO Q4H PRN 06/01/18 [History] Prochlorperazine [Compazine] 10 mg PO Q6H PRN 06/01/18 [History] Spironolactone [Aldactone] 25 mg PO DAILY 06/01/18 [History] Ondansetron [Zofran] 4 mg IVPUSH Q6H PRN #20 vial 06/03/18 [Rx] Diphenoxylate HCl/Atropine [Lomotil] 1 each PO BID PRN 06/06/18 [History] Loperamide [Imodium] 2 mg PO Q4H PRN 06/06/18 [History] Metoclopramide [Reglan] 10 mg IVPUSH Q6H sdv 06/15/18 [Rx] Pantoprazole [ProTONIX IV] 40 mg IVPUSH Q12H vial 06/15/18 [Rx] Sodium Chloride 0.9% [Normal Saline] 50 ml IV ASDIRECTED bag 06/15/18 [Rx] Sodium Chloride 0.9% [Saline Flush] 10 ml FLUSH ASDIRECTED PRN syringe [Rx] Temazepam [Restoril] 15 mg PO BEDTIME PRN cap 06/15/18 [Rx] Oxygen Therapy Mode: Room Air - Discharge Summary/Plan Comment DC Time >30 min.: No Discharge Summary/Plan Comment: Patient will be transferred to [facility] due to SBO, NG, Doll, IVF, dehydration, weakness, and deconditioning. - General Info Date of Service: 06/15/18 Admission Dx/Problem (Free Text: Admission Diagnosis/Problem Admission Diagnosis/Problem Weakness Deconditioning Malnutrition Hypercoagulable state Malignant Neoplasm of the Ascending Colon Metastatic Colon CA Chronic diastolic CHF DVT History of PE Subjective Update: Unable to fully assess due to patient status/condition. ROS partially obtained from nursing staff. Functional Status: Reports: Pain Controlled, Urinating, New Symptoms. Denies: Tolerating Diet, Ambulating - Review of Systems General: Reports: Weakness. Denies: Fever, Chills Pulmonary: Reports: Cough. Denies: Shortness of Breath Cardiovascular: Denies: Chest Pain, Palpitations Gastrointestinal: Reports: Abdominal Pain, Nausea, Vomiting Skin: Reports: No Symptoms Neurological: Reports: No Symptoms - Patient Data Vitals - Most Recent: Last Vital Signs Temp 36.8 C 06/15/18 06:00 Pulse 119 H 06/15/18 06:00 Resp 18 06/15/18 06:00 BP 137/59 L 06/15/18 06:00 Pulse Ox 93 L 06/15/18 06:00 Weight - Most Recent: 84.368 kg I&O - Last 24 hours: Intake & Output 02/06/15/18 06/15/18 22:59 06:59 14:59 Intake Total 1525 608 Output Total 750 1400 Balance 775 -792 Lab Results - Last 24 hrs: Laboratory Results - last 24 hr 06/15/18 06/15/18 Range/Units 08:30 08:30 PT 14.4 H D (9.6-11.4) SEC INR 1.4 L (2.0-3.5) Sodium 136 (136-145) mmol/L Potassium 4.0 (3.5-5.1) mmol/L Chloride 104 (98-107) mmol/L Carbon Dioxide 21 (21-32) mmol/L Anion Gap 15.0 (10-20) mmol/L BUN 21 H (7-18) mg/dL Creatinine 0.7 (0.55-1.02) mg/dL Est Cr Clr Drug Dosing 51.91 mL/min Estimated GFR (MDRD) > 60 Glucose 89 (74-106) mg/dL Calcium 8.4 L (8.5-10.1) mg/dL Med Orders - Current: Current Medications Calcium Carbonate/Glycine (Tums Extra Strength) 750 mg PO Q2H PRN PRN Reason: Dyspepsia Last Admin: 06/10/18 03:44 Dose: 750 mg Sodium Chloride (Normal Saline) 1,000 mls @ 50 mls/hr IV ASDIRECTED [facility] Last Admin: 06/15/18 02:43 Dose: 50 mls/hr Loperamide HCl (Imodium) 2 mg PO Q4H PRN PRN Reason: Diarrhea Last Admin: 06/10/18 19:34 Dose: 2 mg Magnesium Oxide (Magnesium Oxide) 400 mg PO BID [facility] Last Admin: 06/15/18 08:11 Dose: Not Given Metoclopramide HCl (Reglan) 10 mg IVPUSH Q6H [facility] Last Admin: 06/15/18 06:36 Dose: 10 mg Metoprolol Succinate (Toprol Xl) 50 mg PO DAILY [facility] Last Admin: 06/15/18 08:11 Dose: Not Given Omeprazole (Omeprazole) 20 mg PO DAILY@0700 [facility] Last Admin: 06/15/18 06:36 Dose: Not Given Ondansetron HCl (Zofran) 4 mg IVPUSH Q6H PRN PRN Reason: Nausea Last Admin: 06/13/18 13:02 Dose: 4 mg Ondansetron HCl (Zofran Odt) 4 mg PO Q6H PRN PRN Reason: Nausea Pantoprazole Sodium (Protonix Iv) 40 mg IVPUSH Q12H [facility] Last Admin: 06/15/18 06:35 Dose: 40 mg Prochlorperazine Maleate (Compazine) 10 mg PO Q6H PRN PRN Reason: Nausea Last Admin: 06/10/18 19:36 Dose: 10 mg Spironolactone (Aldactone) 25 mg PO DAILY [facility] Last Admin: 06/15/18 08:11 Dose: Not Given Discontinued Medications Acetaminophen (Tylenol) 650 mg PO Q4H PRN PRN Reason: Pain Diphenoxylate HCl/Atropine (Lomotil 0.025-2.5 Mg) 1 tab PO BID PRN PRN Reason: Diarrhea Last Admin: 06/11/18 19:50 Dose: 1 tab Furosemide (Lasix) 20 mg IV ONETIME ONE Stop: 06/14/18 18:09 Last Admin: 06/14/18 18:15 Dose: 20 mg Sodium Chloride (Normal Saline) 1,000 mls @ 50 mls/hr IV ASDIRECTED [facility] Last Admin: 06/12/18 04:39 Dose: 50 mls/hr Magnesium Sulfate 2 gm/ Premix 50 mls @ 25 mls/hr IV ONETIME ONE Stop: 06/10/18 15:32 Last Admin: 06/10/18 13:44 Dose: 25 mls/hr Sodium Chloride (Normal Saline) 1,000 mls @ 500 mls/hr IV ONETIME ONE Stop: 06/12/18 20:15 Last Admin: 06/12/18 18:36 Dose: 500 mls/hr Sodium Chloride (Normal Saline) 1,000 mls @ 125 mls/hr IV ASDIRECTED [facility] Last Admin: 06/14/18 13:40 Dose: 125 mls/hr Phytonadione 5 mg/ Sodium (Chloride) 100.5 mls @ 300 mls/hr IV ONETIME ONE Stop: 06/14/18 09:05 Last Admin: 06/14/18 10:00 Dose: 300 mls/hr Metoclopramide HCl (Reglan) 10 mg IVPUSH ONETIME ONE Stop: 06/12/18 18:41 Last Admin: 06/12/18 18:51 Dose: 10 mg Metoclopramide HCl (Reglan) 10 mg IVPUSH Q8H RANJIT Pantoprazole Sodium (Protonix) 40 mg PO ACBRK RANJIT Sodium Chloride (Saline Flush) 10 ml FLUSH ASDIRECTED PRN PRN Reason: Keep Vein Open Last Admin: 06/15/18 06:35 Dose: 10 ml Temazepam (Restoril) 15 mg PO BEDTIME PRN PRN Reason: Sleep Last Admin: 06/12/18 21:39 Dose: 15 mg - Exam Quality Assessment: Reports: Urine Catheter, DVT Prophylaxis General: Reports: Cooperative, Lethargic. Denies: No Acute Distress Lungs: Reports: Normal Respiratory Effort, Decreased Breath Sounds Cardiovascular: Reports: Regular Rate, Regular Rhythm GI/Abdominal Exam: Rigid, Tender, Abnormal Bowel Sounds (hypoactive) Skin: Reports: Warm, Dry, Intact Neurological: Reports: No New Focal Deficit *Q Meaningful Use (DIS) - VTE *Q VTE Mechanical Contraindications *Q: At Risk for Falls
== END 2018-06-15 11:00 | disposition critical access hospital (66) | DRG 640 ==
LOC: VM.MS 14:36
PROVIDERS: ADMIT Nurse Practitioner Family; ATTEND Nurse Practitioner Family
DX: E87.6 Hypokalemia (principal); E43 Unspecified severe protein-calorie malnutrition; C18.2 Malignant neoplasm of ascending colon; I82.409 Acute embolism and thrombosis of unspecified deep veins of unspecified lower extremity; I50.32 Chronic diastolic (congestive) heart failure; K56.699 Other intestinal obstruction unspecified as to partial versus complete obstruction; D68.59 Other primary thrombophilia; R19.7 Diarrhea, unspecified; E78.00 Pure hypercholesterolemia, unspecified; Z86.711 Personal history of pulmonary embolism; Z79.899 Other long term (current) drug therapy; Z88.1 Allergy status to other antibiotic agents; Z88.5 Allergy status to narcotic agent; Z88.2 Allergy status to sulfonamides; Z91.040 Latex allergy status; E86.0 Dehydration
CPT/HCPCS: 36415; 51702; 74176; 80048; 80053; 81001; 83735; 83880; 85025; 85610; 93005; 97110-GP; 97116-GP; 97168-GO; A9270-GY; C9113; J1940; J2405; J2765; J3430; J3475; J7030; J7050; Q0164

== ENCOUNTER 2018-06-15 10:58 | Inpatient (IN) | payer MEDICARE, BC ==
--- NOTE | 2018-06-15 11:30 | PCM.HP ---
H&P History of Present Illness - General Date of Service: 06/15/18 Admit Problem/Dx: Admission Diagnosis/Problem Admission Diagnosis/Problem Small bowel obstruction Colon CA Dehydration Weakness Deconditioning Malnutrition Source of Information: Family, Old Records, RN, RN Notes Reviewed History Limitations: Reports: No Limitations - History of Present Illness Initial Comments - Free Text/Narative: Patient was originally admitted to Observation on June 01 for a supratherapeutic INR, low potassium, and diarrhea. Patient had stool testing completed which did not show any C-Diff or other enteric pathogens. Patient was given Vit K for high INR and KCL IV. She was transitioned to Swing bed for continues cares and rehab. While on swing bed, a SBO was found so patient status was changed to acute today due to having an NG. Gardner, poor potential for rehab, lab monitoring, and IVF. Patient has declined over the past few days. She is on bedrest as she is too weak to participate in getting out of bed. INR yesterday was >13.0 for 5 mg of IV Vit K was given. Today, her INR is 1.4. Patient continue to have large amount of stool like output through the NG. She has only taken ice chips for any oral intake. Patient is currently under treatment for colon CA. Her last chemo was May 30. She has not tolerated chemo well as it has caused considerable diarrhea, weakness, poor PO intake. Her INR's have been variable. - Related Data Allergies/Adverse Reactions: Allergies Allergy/AdvReac Type Severity Reaction Status Date / Time cephalexin Allergy Hives Verified 06/01/18 12:43 codeine Allergy Hives Verified 06/01/18 12:43 latex Allergy Rash Verified 06/01/18 12:43 Sulfa (Sulfonamide Allergy Swelling Verified 06/01/18 12:43 Antibiotics) Home Medications: Home Meds Metoprolol Succinate 1 tab PO DAILY 03/29/18 [History] Furosemide 20 mg PO DAILY PRN 03/30/18 [History] Magnesium Oxide 400 mg PO BID 03/30/18 [History] Acetaminophen 325 - 650 mg PO Q4H PRN 06/01/18 [History] Prochlorperazine [Compazine] 10 mg PO Q6H PRN 06/01/18 [History] Spironolactone [Aldactone] 25 mg PO DAILY 06/01/18 [History] Ondansetron [Zofran] 4 mg IVPUSH Q6H PRN #20 vial 06/03/18 [Rx] Diphenoxylate HCl/Atropine [Lomotil] 1 each PO BID PRN 06/06/18 [History] Loperamide [Imodium] 2 mg PO Q4H PRN 06/06/18 [History] Calcium Carbonate [Tums Extra Strength] 750 mg PO Q2H PRN 06/15/18 [History] Metoclopramide [Reglan] 10 mg IVPUSH Q6H sdv 06/15/18 [Rx] Omeprazole 20 mg PO DAILY 06/15/18 [History] Ondansetron [Zofran ODT] 4 mg PO Q6H PRN 06/15/18 [History] Pantoprazole [ProTONIX IV] 40 mg IVPUSH Q12H vial 06/15/18 [Rx] Sodium Chloride 0.9% [Normal Saline] 50 ml IV ASDIRECTED bag 06/15/18 [Rx] Sodium Chloride 0.9% [Saline Flush] 10 ml FLUSH ASDIRECTED PRN syringe [Rx] Temazepam [Restoril] 15 mg PO BEDTIME PRN cap 06/15/18 [Rx] Past Medical History Cardiovascular History: Reports: Heart Failure, High Cholesterol Respiratory History: Reports: PE, Other (See Below) Other Respiratory History: dyspnea Oncologic (Cancer) History: Reports: Colon - Past Surgical History GI Surgical History: Reports: Other (See Below) Other GI Surgeries/Procedures: bowel surgery H&P Review of Systems - Review of Systems: Review Of Systems: Unable To Obtain (due to patient condition; part of ROS obtained from nursing staff) General: Denies: Fever, Chills Pulmonary: Reports: Cough. Denies: Shortness of Breath Cardiovascular: Denies: Chest Pain, Palpitations Gastrointestinal: Reports: Abdominal Pain, Decreased Appetite, Difficulty Swallowing, Nausea. Denies: Vomiting Skin: Reports: No Symptoms Neurological: Reports: No Symptoms Exam - Exam Exam: See Below - Exam Quality Assessment: Urinary Catheter, DVT Prophylaxis. No: Skin Breakdown General: Cooperative, Lethargic Lungs: Clear to Auscultation, Normal Respiratory Effort, Decreased Breath Sounds Cardiovascular: Regular Rate, Regular Rhythm GI/Abdominal Exam: Rigid, Tender, Abnormal Bowel Sounds (Hypoactive x4) Peripheral Pulses: 2+: Radial (L), Radial (R) Skin: Warm, Dry, Intact Neuro Extensive - Mental Status: Alert (with stimulation), Slow Response to Commands *Q Meaningful Use (ADM) - VTE *Q VTE Mechanical Contraindications *Q: At Risk for Falls - Problem List (1) Small bowel obstruction SNOMED Code(s): 845535471 ICD Code: K56.609 - UNSP INTESTNL OBST, UNSP TO PARTIAL VERSUS COMPLETE OBST Status: Acute Priority: High Current Visit: Yes Onset Date: ~ (2) Elevated INR SNOMED Code(s): 754799489 ICD Code: R79.1 - ABNORMAL COAGULATION PROFILE Status: Acute Priority: Medium Current Visit: Yes (3) Physical deconditioning SNOMED Code(s): 32778081408742 ICD Code: R53.81 - OTHER MALAISE Status: Acute Priority: Medium Current Visit: Yes (4) Vomiting SNOMED Code(s): 488940860 ICD Code: R11.10 - VOMITING, UNSPECIFIED Status: Acute Priority: Medium Current Visit: Yes (5) Weakness SNOMED Code(s): 97538494 ICD Code: R53.1 - WEAKNESS Status: Acute Priority: Medium Current Visit : Yes (6) Malignant neoplasm of ascending colon Status: Chronic Current Visit: No (7) Malnutrition SNOMED Code(s): 35986852 ICD Code: E46 - UNSPECIFIED PROTEIN-CALORIE MALNUTRITION Status: Chronic Priority: Medium Current Visit: No Qualifiers: Malnutrition type: protein-calorie malnutrition Protein-calorie malnutrition severity: severe Qualified Code(s): E43 - Unspecified severe protein-calorie malnutrition (8) Metastatic colon cancer in female SNOMED Code(s): 646655852, 480468880 ICD Code: C18.9 - MALIGNANT NEOPLASM OF COLON, UNSPECIFIED Status: Chronic Priority: Medium Current Visit: No Problem List Initiated/Reviewed/Updated: Yes Orders Last 24hrs: Active Orders 24 hr Category Date Time Status Patient Status [ADT] Routine ADT 06/15/18 11:23 Ordered Bedrest Bathroom Privileges [RC] ASDIRECTED Care 06/15/18 11:23 Ordered Height and Weight [RC] DAILY Care 06/15/18 11:23 Inactive Intake and Output [RC] QSHIFT Care 06/15/18 11:24 Ordered May Shower [RC] ASDIRECTED Care 06/15/18 11:23 Ordered NG [Gastrointestinal Tube Mgmt] [RC] ASDIRECTED Care 06/15/18 11:26 Ordered Oxygen Therapy [RC] PRN Care 06/15/18 11:23 Ordered Urinary Catheter Assessment [RC] ASDIRECTED Care 06/15/18 11:23 Ordered VTE/DVT Education [RC] PER UNIT ROUTINE Care 06/15/18 11:23 Ordered Vital Signs [RC] Q4H Care 06/15/18 11:23 Ordered Weight Daily [Height and Weight] [RC] DAILY Care 06/15/18 11:28 Ordered Consult to Case Management/Pv Design Engineer [CONS] Cons 06/15/18 11:23 Ordered Routine Nothing per Oral Now Diet [DIET] Diet 06/15/18 Breakfast Ordered BASIC METABOLIC PANEL,BMP [CHEM] Routine Lab 06/16/18 05:11 Ordered CBC WITH AUTO DIFF [HEME] Routine Lab 06/16/18 05:11 Ordered INR,PT,PROTHROMBIN TIME [COAG] Routine Lab 06/16/18 05:11 Ordered Sodium Chloride 0.9% @ 50 MLS/HR(1000ml) Med 06/15/18 11:30 Ordered Sodium Chloride 0.9% [Normal Saline] 1,000 ml IV ASDIRECTED Resuscitation Status Routine Resus Stat 06/15/18 11:23 Ordered Medication Orders Sodium Chloride (Normal Saline) 1,000 mls @ 50 mls/hr IV ASDIRECTED RANJIT Assessment/Plan Comment:: 87 yo female patient with a past medical history of Colon Ca with mets, malnutrition, supratherapeutic INR, HTN, Hyperlipidemia is admitted to acute cares today for SBO, weakness, deconditioning, dehydration. Will continue with IVF for now. Recheck CT of Abd/Pelvis tomorrow. Labs in AM. NG to LIS. Continue with gardner. Monitor weight and kidney function for fluid overload. Plan is to have a family meeting on 06/16/2018 to discuss once again surgery for SBO versus palliative/end of life cares. At this point, surgery is a high risk and may not be an option given current health condition. Will meet with family and recommend palliative/end of life cares. Patient has stated she does not want surgery or be transferred to a higher level of care.
[2018-06-15] MEDS ORDERED: Loperamide 2 MG Cap PO PRN (11:44)
[2018-06-15] MEDS ORDERED: Atropine/Diphenoxylate 0.025-2.5 MG Tab PO PRN (11:44)
[2018-06-15] MEDS ORDERED: Loperamide 2 MG Cap NGTUBE PRN (11:48)
[2018-06-15] MEDS ORDERED: Atropine/Diphenoxylate 0.025-2.5 MG Tab NGTUBE PRN (11:48)
[2018-06-15] MEDS ORDERED: Prochlorperazine 5 MG Tab PO PRN (12:00)
[2018-06-15] MEDS: Metoclopramide 10 MG/2 ML SDV IVPUSH SCH ×2 (12:26→17:45)
[2018-06-15] MEDS: Pantoprazole 40 MG Vial IVPUSH SCH (12:26)
[2018-06-15] MEDS: Sodium Chloride 0.9% 1,000 ML IV SCH ×2 (12:27→22:49)
[2018-06-15] MEDS ORDERED: Furosemide 20 MG/2 ML VIAL IV ONE (13:07)
[2018-06-15] MEDS: Magnesium Oxide 400 MG Tab NGTUBE SCH (20:00)
[2018-06-15] MEDS: Metoprolol Tartrate 25 MG Tab NGTUBE SCH (20:00)
[2018-06-15] MEDS ORDERED: Non-Formulary Medication 1 Each (Magnesium Oxide [Magnesium Oxide] 400 MG) PO SCH (20:00)
[2018-06-16] MEDS: Metoclopramide 10 MG/2 ML SDV IVPUSH SCH ×4 (00:06→17:19)
[2018-06-16] MEDS: Sodium Chloride 0.9% 10 ML Syringe FLUSH PRN ×2 (00:06→05:28)
[2018-06-16] MEDS: Pantoprazole 40 MG Vial IVPUSH SCH ×2 (00:06→11:54)
[2018-06-16] MEDS ORDERED: Spironolactone 25 MG Tab PO SCH (08:00)
[2018-06-16] MEDS: Spironolactone 25 MG Tab NGTUBE SCH (08:43)
[2018-06-16] MEDS: Metoprolol Tartrate 25 MG Tab NGTUBE SCH ×2 (08:43→20:16)
[2018-06-16] MEDS: Magnesium Oxide 400 MG Tab NGTUBE SCH ×2 (08:43→20:17)
[2018-06-16 09:29] LABS: CHLORIDE,CL 104 mmol/L (98-107); SODIUM,NA 138 mmol/L (136-145)
[2018-06-16 09:30] LABS: ANION GAP 15.5 mmol/L (10-20)
[2018-06-16] MEDS ORDERED: Iopamidol 612 MG/ML 100 ML Bottle IVPUSH ONE (13:31)
--- NOTE | 2018-06-16 13:37 | PCM.PN ---
- General Info Date of Service: 06/16/18 Admission Dx/Problem (Free Text): Admission Diagnosis/Problem Admission Diagnosis/Problem Small bowel obstruction Colon CA Dehydration Weakness Deconditioning Malnutrition Subjective Update: Patient denies any pain this morning. She did have one small liquid stool yesterday. No chest pain or SOB. Nausea has improved some. Only taking ice chips. Does not have an appetite yet. She states she feels the same. Functional Status: Reports: Pain Controlled, Urinating. Denies: Tolerating Diet , Ambulating Pain Score: 0 - Review of Systems General: Denies: Fever, Chills Pulmonary: Denies: Shortness of Breath, Cough Cardiovascular: Denies: Chest Pain, Palpitations Gastrointestinal: Reports: Abdominal Pain, Nausea. Denies: Vomiting Skin: Reports: No Symptoms Neurological: Reports: No Symptoms - Patient Data Vitals - Most Recent: Last Vital Signs Temp 37.1 C 06/16/18 09:55 Pulse 106 H 06/16/18 09:55 Resp 20 06/16/18 09:55 BP 131/71 06/16/18 09:55 Pulse Ox 89 L 06/16/18 09:55 Weight - Most Recent: 85.275 kg I&O - Last 24 Hours: Intake & Output 06/15/18 06/16/18 06/16/18 22:59 06:59 14:59 Intake Total 803 403 Output Total 1350 500 200 Balance -547 -97 -200 Lab Results Last 24 Hours: Laboratory Results - last 24 hr 06/16/18 06/16/18 06/16/18 Range/Units 08:55 08:55 08:55 WBC 6.1 (4.0-10.0) x10^3/uL RBC 3.58 L (4.00-5.50) x10^6/uL Hgb 11.3 L (12.0-16.0) g/dL Hct 34.5 (33.0-47.0) % MCV 96.4 H (78.0-93.0) fL MCH 31.6 (26.0-32.0) pg MCHC 32.8 (32.0-36.0) g/dL RDW Coeff of Michelle 15.9 H (10.0-15.0) % Plt Count 299 D (130-400) x10^3/uL Add Manual Diff Yes Neutrophils % (Manual) 63 (50-80) % Band Neutrophils % 23 H (0-6) % Lymphocytes % (Manual) 9 L (25-50) % Monocytes % (Manual) 4 (2-11) % Eosinophils % (Manual) 1 (0-4) % Platelet Estimate Adequate Hypochromasia 1+ slight H Anisocytosis 1+ slight H Target Cells 1+ slight H PT 14.8 H (9.6-11.4) SEC INR 1.4 L (2.0-3.5) Sodium 138 (136-145) mmol/L Potassium 3.5 (3.5-5.1) mmol/L Chloride 104 (98-107) mmol/L Carbon Dioxide 22 (21-32) mmol/L Anion Gap 15.5 (10-20) mmol/L BUN 21 H (7-18) mg/dL Creatinine 0.6 (0.55-1.02) mg/dL Est Cr Clr Drug Dosing TNP Estimated GFR (MDRD) > 60 Glucose 89 (74-106) mg/dL Calcium 8.4 L (8.5-10.1) mg/dL Med Orders - Current: Current Medications Diphenoxylate HCl/Atropine (Lomotil 0.025-2.5 Mg) 1 tab NGTUBE BID PRN PRN Reason: Diarrhea Sodium Chloride (Normal Saline) 1,000 mls @ 50 mls/hr IV ASDIRECTED [facility] Last Admin: 06/15/18 22:49 Dose: 50 mls/hr Loperamide HCl (Imodium) 2 mg NGTUBE Q4H PRN PRN Reason: Diarrhea Magnesium Oxide (Magnesium Oxide) 400 mg NGTUBE BID [facility] Last Admin: 06/16/18 08:43 Dose: 400 mg Metoclopramide HCl (Reglan) 10 mg IVPUSH Q6H [facility] Last Admin: 06/16/18 11:54 Dose: 10 mg Metoprolol Tartrate (Lopressor) 25 mg NGTUBE BID [facility] Last Admin: 06/16/18 08:43 Dose: 25 mg Ondansetron HCl (Zofran) 4 mg IVPUSH Q6H PRN PRN Reason: Nausea Pantoprazole Sodium (Protonix Iv) 40 mg IVPUSH Q12H [facility] Last Admin: 06/16/18 11:54 Dose: 40 mg Prochlorperazine Maleate (Compazine) 10 mg PO Q6H PRN PRN Reason: Nausea Sodium Chloride (Saline Flush) 10 ml FLUSH ASDIRECTED PRN PRN Reason: Keep Vein Open Last Admin: 06/16/18 05:28 Dose: 10 ml Spironolactone (Aldactone) 25 mg NGTUBE DAILY [facility] Last Admin: 06/16/18 08:43 Dose: 25 mg Discontinued Medications Diphenoxylate HCl/Atropine (Lomotil 0.025-2.5 Mg) tab PO BID PRN PRN Reason: Diarrhea Furosemide (Lasix) 20 mg IV ONETIME ONE Stop: 06/15/18 13:08 Last Admin: 06/15/18 13:24 Dose: 20 mg Loperamide HCl (Imodium) 2 mg PO Q4H PRN PRN Reason: Diarrhea Non-Formulary Medication (Magnesium Oxide [Magnesium Oxide]) 400 mg PO BID [facility] Spironolactone (Aldactone) 25 mg PO DAILY [facility] - Exam Quality Assessment: Urine Catheter, DVT Prophylaxis. No: Skin Breakdown General: Alert, Cooperative, No Acute Distress Lungs: Clear to Auscultation, Normal Respiratory Effort, Decreased Breath Sounds Cardiovascular: Regular Rate, Regular Rhythm GI/Abdominal Exam: Rigid, Tender, Abnormal Bowel Sounds (Absent). No: Distended Peripheral Pulses: 2+: Radial (L), Radial (R) Skin: Warm, Dry, Intact Neurological: No New Focal Deficit - Problem List & Annotations (1) Small bowel obstruction SNOMED Code(s): 071926531 Code(s): K56.609 - UNSP INTESTNL OBST, UNSP TO PARTIAL VERSUS COMPLETE OBST Status: Acute Priority: High Current Visit: Yes Onset Date: ~ (2) Elevated INR SNOMED Code(s): 332851751 Code(s): R79.1 - ABNORMAL COAGULATION PROFILE Status: Acute Priority: Medium Current Visit: Yes (3) Physical deconditioning SNOMED Code(s): 95233154543113 Code(s): R53.81 - OTHER MALAISE Status: Acute Priority: Medium Current Visit: Yes (4) Vomiting SNOMED Code(s): 831468073 Code(s): R11.10 - VOMITING, UNSPECIFIED Status: Acute Priority: Medium Current Visit: Yes (5) Weakness SNOMED Code(s): 81954553 Code(s): R53.1 - WEAKNESS Status: Acute Priority: Medium Current Visit : Yes (6) Malignant neoplasm of ascending colon Status: Chronic Current Visit: No (7) Malnutrition SNOMED Code(s): 01252671 Code(s): E46 - UNSPECIFIED PROTEIN-CALORIE MALNUTRITION Status: Chronic Priority: Medium Current Visit: No Qualifiers: Malnutrition type: protein-calorie malnutrition Protein-calorie malnutrition severity: severe Qualified Code(s): E43 - Unspecified severe protein-calorie malnutrition (8) Metastatic colon cancer in female SNOMED Code(s): 209674213, 580670399 Code(s): C18.9 - MALIGNANT NEOPLASM OF COLON, UNSPECIFIED Status: Chronic Priority: Medium Current Visit: No - Problem List Review Problem List Initiated/Reviewed/Updated: Yes - My Orders Last 24 Hours: My Active Orders 06/15/18 20:00 Magnesium Oxide 400 mg NGTUBE BID Metoprolol Tartrate [Lopressor] 25 mg NGTUBE BID 06/16/18 08:00 Spironolactone [Aldactone] 25 mg NGTUBE DAILY 06/16/18 08:55 PROCALCITONIN [REF] Stat 06/16/18 13:25 Abdomen Pelvis w Cont [CT] Routine - Assessment Assessment:: Small bowel obstruction Colon CA Dehydration Weakness Deconditioning Malnutrition - Plan Plan:: 87 yo female patient with a past medical history of Colon Ca with mets, malnutrition, supratherapeutic INR, HTN, Hyperlipidemia is admitted to acute care yesterday for SBO, weakness, deconditioning, dehydration. Will continue with IVF for now. Recheck CT of Abd/Pelvis today. Labs in AM. NG to LIS. Continue with jj. Monitor weight and kidney function for fluid overload. Plan is to have a family meeting on 06/16/2018 to discuss once again surgery for SBO versus palliative/end of life cares. At this point, surgery is a high risk and may not be an option given current health condition. Will meet with family and recommend palliative/end of life cares. Patient has stated she does not want surgery or be transferred to a higher level of care. She is also adamant chemo treatment.
--- NOTE | 2018-06-16 15:32 | CT ---
[id number] CT/CT Abdomen Pelvis W IV EXAM: ABDOMEN AND PELVIS CT WITH CONTRAST INDICATION: Small bowel obstruction, abdominal pain, nausea and colon cancer. COMPARISON: June 12, 2018 DISCUSSION: There is persistent proximal to mid small bowel dilation to about 4.5 cm a slight increase from the previous of 4.3 cm. In the right lower quadrant there is a tapered transition to nondilated small bowel. From the point of transition to the ileocolonic anastomosis in the right mid abdomen there is mild to moderate wall thickening and mucosal hyperenhancement suggesting underlying enteritis. The gallbladder remains thick-walled with cholelithiasis. Given the overall context of fluid overload these findings are nonspecific and HIDA scan or ultrasound would be useful for further evaluation if there is any clinical concern for acute cholecystitis. Moderate and small to moderate left pleural effusions, small ascites and moderate body wall edema have increased. The urinary bladder is decompressed by Doll catheter. An 8 x 5 cm fluid collection in the right lower quadrant is unchanged and likely represents a seroma. Colonic diverticulosis without evidence of diverticulitis. A nasogastric tube is coiled in the stomach tip in the proximal gastric body. The liver, pancreas, spleen, adrenal glands, and kidneys are unremarkable. Degenerative changes throughout the spine. Left hip arthroplasty. The osseous structures are otherwise unremarkable. IMPRESSION: 1. Persistent changes of a mid to distal small bowel obstruction with slight interval increase in bowel dilation relative to the prior study. The decompressed small bowel distal to the site of obstruction demonstrates wall thickening compatible with underlying enteritis. 2. Generalized volume overload has increased with bilateral effusions, ascites and body wall edema. 3. Cholelithiasis and gallbladder wall thickening could be seen in the context of calculus cholecystitis, but evaluation is complicated by the generalized fluid overload. HIDA scan and/or ultrasound could provide further characterization if clinical signs and symptoms are equivocal. Clarence Soriano MD 06/16/18 [id number] Thank you for allowing us to participate in the care of your patient.
--- NOTE | 2018-06-16 19:12 | PCM.SN ---
- Free Text/Narrative Note: Family conference held. MINNIE Del Toro, Son, Daughter in law, and provider present. Thoroughly and extensively discussed care options. CT scan of abd/pelvis today unchanged from previous. CT today shows worsening of SBO and new enteritis. Offered possibility of surgery again, but this was declined by patient and family. Other option of in house palliative care/end of life discussed. Family states they would like to keep Eva here if they decide end of life/palliative treatment. Son will contact our house Performance Reporter tomorrow to discussed final decisions.
[2018-06-16] MEDS: Sodium Chloride 0.9% 1,000 ML IV SCH (20:17)
[2018-06-17] MEDS: Metoclopramide 10 MG/2 ML SDV IVPUSH SCH ×4 (05:04→17:15)
[2018-06-17 07:07] LABS: CHLORIDE,CL 105 mmol/L (98-107); SODIUM,NA 139 mmol/L (136-145)
[2018-06-17 07:09] LABS: ANION GAP 15.5 mmol/L (10-20)
[2018-06-17] MEDS ORDERED: Furosemide 20 MG/2 ML VIAL IV ONE ×2 (07:35→17:56)
--- NOTE | 2018-06-17 07:43 | PCM.PN ---
- General Info Date of Service: 06/17/18 Admission Dx/Problem (Free Text): Admission Diagnosis/Problem Admission Diagnosis/Problem Small bowel obstruction Colon CA Dehydration Weakness Deconditioning Malnutrition Subjective Update: Patient denies any pain this morning. She did have one small liquid stool yesterday. No chest pain or SOB. Nausea has improved some. Only taking ice chips. Does not have an appetite yet. She states she feels the same. Functional Status: Reports: Pain Controlled, Urinating. Denies: Tolerating Diet , Ambulating Pain Score: 0 - Review of Systems General: Reports: Weakness, Fatigue. Denies: Fever, Chills Pulmonary: Denies: Shortness of Breath, Cough Cardiovascular: Denies: Chest Pain, Palpitations Gastrointestinal: Reports: Abdominal Pain, Nausea. Denies: Vomiting Skin: Reports: No Symptoms Neurological: Reports: No Symptoms - Patient Data Vitals - Most Recent: Last Vital Signs Temp 36.2 C 06/17/18 05:29 Pulse 111 H 06/17/18 05:29 Resp 14 06/17/18 05:29 BP 124/47 L 06/17/18 05:29 Pulse Ox 91 L 06/17/18 05:29 Weight - Most Recent: 85.275 kg I&O - Last 24 Hours: Intake & Output 06/16/18 06/17/18 06/17/18 22:59 06:59 14:59 Intake Total 600 Output Total 250 300 Balance -250 300 Lab Results Last 24 Hours: Laboratory Results - last 24 hr 06/16/18 06/16/18 06/16/18 Range/Units 08:55 08:55 08:55 WBC 6.1 (4.0-10.0) x10^3/uL RBC 3.58 L (4.00-5.50) x10^6/uL Hgb 11.3 L (12.0-16.0) g/dL Hct 34.5 (33.0-47.0) % MCV 96.4 H (78.0-93.0) fL MCH 31.6 (26.0-32.0) pg MCHC 32.8 (32.0-36.0) g/dL RDW Coeff of Michelle 15.9 H (10.0-15.0) % Plt Count 299 D (130-400) x10^3/uL Add Manual Diff Yes Neutrophils % (Manual) 63 (50-80) % Band Neutrophils % 23 H (0-6) % Lymphocytes % (Manual) 9 L (25-50) % Monocytes % (Manual) 4 (2-11) % Eosinophils % (Manual) 1 (0-4) % Metamyelocytes % (0) % Platelet Estimate Adequate Hypochromasia 1+ slight H Anisocytosis 1+ slight H Target Cells 1+ slight H Ovalocytes PT 14.8 H (9.6-11.4) SEC INR 1.4 L (2.0-3.5) Sodium 138 (136-145) mmol/L Potassium 3.5 (3.5-5.1) mmol/L Chloride 104 (98-107) mmol/L Carbon Dioxide 22 (21-32) mmol/L Anion Gap 15.5 (10-20) mmol/L BUN 21 H (7-18) mg/dL Creatinine 0.6 (0.55-1.02) mg/dL Est Cr Clr Drug Dosing TNP Estimated GFR (MDRD) > 60 Glucose 89 (74-106) mg/dL Calcium 8.4 L (8.5-10.1) mg/dL Corrected Calcium (8.5-10.1) mg/dL Total Bilirubin (0.2-1.0) mg/dL AST (15-37) U/L ALT (14-59) U/L Alkaline Phosphatase (46-116) U/L Total Protein (6.4-8.2) g/dL Albumin (3.4-5.0) g/dL Globulin Albumin/Globulin Ratio Procalcitonin (<0.10) ng/mL 06/16/18 06/17/18 06/17/18 Range/Units 08:55 06:39 06:39 WBC 6.5 (4.0-10.0) x10^3/uL RBC 3.39 L (4.00-5.50) x10^6/uL Hgb 10.8 L (12.0-16.0) g/dL Hct 32.5 L (33.0-47.0) % MCV 95.9 H (78.0-93.0) fL MCH 31.9 (26.0-32.0) pg MCHC 33.2 (32.0-36.0) g/dL RDW Coeff of Michelle 15.4 H (10.0-15.0) % Plt Count 226 (130-400) x10^3/uL Add Manual Diff Yes Neutrophils % (Manual) 82 H (50-80) % Band Neutrophils % 4 (0-6) % Lymphocytes % (Manual) 7 L (25-50) % Monocytes % (Manual) 4 (2-11) % Eosinophils % (Manual) (0-4) % Metamyelocytes % 3 H (0) % Platelet Estimate Adequate Hypochromasia 1+ slight H Anisocytosis 1+ slight H Target Cells Ovalocytes 1+ slight H PT 15.4 H (9.6-11.4) SEC INR 1.5 L (2.0-3.5) Sodium (136-145) mmol/L Potassium (3.5-5.1) mmol/L Chloride (98-107) mmol/L Carbon Dioxide (21-32) mmol/L Anion Gap (10-20) mmol/L BUN (7-18) mg/dL Creatinine (0.55-1.02) mg/dL Est Cr Clr Drug Dosing Estimated GFR (MDRD) Glucose (74-106) mg/dL Calcium (8.5-10.1) mg/dL Corrected Calcium (8.5-10.1) mg/dL Total Bilirubin (0.2-1.0) mg/dL AST (15-37) U/L ALT (14-59) U/L Alkaline Phosphatase (46-116) U/L Total Protein (6.4-8.2) g/dL Albumin (3.4-5.0) g/dL Globulin Albumin/Globulin Ratio Procalcitonin 0.50 H (<0.10) ng/mL 06/17/18 Range/Units 06:39 WBC (4.0-10.0) x10^3/uL RBC (4.00-5.50) x10^6/uL Hgb (12.0-16.0) g/dL Hct (33.0-47.0) % MCV (78.0-93.0) fL MCH (26.0-32.0) pg MCHC (32.0-36.0) g/dL RDW Coeff of Michelle (10.0-15.0) % Plt Count (130-400) x10^3/uL Add Manual Diff Neutrophils % (Manual) (50-80) % Band Neutrophils % (0-6) % Lymphocytes % (Manual) (25-50) % Monocytes % (Manual) (2-11) % Eosinophils % (Manual) (0-4) % Metamyelocytes % (0) % Platelet Estimate Hypochromasia Anisocytosis Target Cells Ovalocytes PT (9.6-11.4) SEC INR (2.0-3.5) Sodium 139 (136-145) mmol/L Potassium 3.5 (3.5-5.1) mmol/L Chloride 105 (98-107) mmol/L Carbon Dioxide 22 (21-32) mmol/L Anion Gap 15.5 (10-20) mmol/L BUN 19 H (7-18) mg/dL Creatinine 0.5 L (0.55-1.02) mg/dL Est Cr Clr Drug Dosing 72.68 Estimated GFR (MDRD) > 60 Glucose 87 (74-106) mg/dL Calcium 8.4 L (8.5-10.1) mg/dL Corrected Calcium 10.72 H (8.5-10.1) mg/dL Total Bilirubin 0.8 (0.2-1.0) mg/dL AST 15 (15-37) U/L ALT 13 L (14-59) U/L Alkaline Phosphatase 231 H (46-116) U/L Total Protein 4.2 L (6.4-8.2) g/dL Albumin 1.1 L (3.4-5.0) g/dL Globulin 3.1 Albumin/Globulin Ratio 0.35 Procalcitonin (<0.10) ng/mL Med Orders - Current: Current Medications Diphenoxylate HCl/Atropine (Lomotil 0.025-2.5 Mg) 1 tab NGTUBE BID PRN PRN Reason: Diarrhea Furosemide (Lasix) 20 mg IV ONETIME ONE Stop: 06/17/18 07:36 Sodium Chloride (Normal Saline) 1,000 mls @ 50 mls/hr IV ASDIRECTED [facility] Last Admin: 06/16/18 20:17 Dose: 50 mls/hr Loperamide HCl (Imodium) 2 mg NGTUBE Q4H PRN PRN Reason: Diarrhea Magnesium Oxide (Magnesium Oxide) 400 mg NGTUBE BID [facility] Last Admin: 06/16/18 20:17 Dose: 400 mg Metoclopramide HCl (Reglan) 10 mg IVPUSH Q6H [facility] Last Admin: 06/17/18 05:04 Dose: 10 mg Metoprolol Tartrate (Lopressor) 25 mg NGTUBE BID [facility] Last Admin: 06/16/18 20:16 Dose: 25 mg Ondansetron HCl (Zofran) 4 mg IVPUSH Q6H PRN PRN Reason: Nausea Pantoprazole Sodium (Protonix Iv) 40 mg IVPUSH Q12H [facility] Last Admin: 06/17/18 00:00 Dose: 40 mg Prochlorperazine Maleate (Compazine) 10 mg PO Q6H PRN PRN Reason: Nausea Sodium Chloride (Saline Flush) 10 ml FLUSH ASDIRECTED PRN PRN Reason: Keep Vein Open Last Admin: 06/16/18 05:28 Dose: 10 ml Spironolactone (Aldactone) 25 mg NGTUBE DAILY [facility] Last Admin: 06/16/18 08:43 Dose: 25 mg Discontinued Medications Diphenoxylate HCl/Atropine (Lomotil 0.025-2.5 Mg) tab PO BID PRN PRN Reason: Diarrhea Furosemide (Lasix) 20 mg IV ONETIME ONE Stop: 06/15/18 13:08 Last Admin: 06/15/18 13:24 Dose: 20 mg Iopamidol (Isovue-300 (61%)) 100 ml IVPUSH ONETIME ONE Stop: 06/16/18 13:32 Last Admin: 06/16/18 14:18 Dose: 100 ml Loperamide HCl (Imodium) 2 mg PO Q4H PRN PRN Reason: Diarrhea Non-Formulary Medication (Magnesium Oxide [Magnesium Oxide]) 400 mg PO BID [facility] Spironolactone (Aldactone) 25 mg PO DAILY [facility] - Exam Quality Assessment: Urine Catheter, DVT Prophylaxis. No: Skin Breakdown General: Alert, Cooperative, No Acute Distress Lungs: Clear to Auscultation, Normal Respiratory Effort, Decreased Breath Sounds Cardiovascular: Regular Rate, Regular Rhythm GI/Abdominal Exam: Soft, Tender, Abnormal Bowel Sounds (Absent) Peripheral Pulses: 2+: Radial (L), Radial (R) Skin: Warm, Dry, Intact Neurological: No New Focal Deficit - Problem List & Annotations (1) Small bowel obstruction SNOMED Code(s): 146875549 Code(s): K56.609 - UNSP INTESTNL OBST, UNSP TO PARTIAL VERSUS COMPLETE OBST Status: Acute Priority: High Current Visit: Yes Onset Date: ~ (2) Elevated INR SNOMED Code(s): 264060965 Code(s): R79.1 - ABNORMAL COAGULATION PROFILE Status: Acute Priority: Medium Current Visit: Yes (3) Physical deconditioning SNOMED Code(s): 57808902211957 Code(s): R53.81 - OTHER MALAISE Status: Acute Priority: Medium Current Visit: Yes (4) Vomiting SNOMED Code(s): 558268853 Code(s): R11.10 - VOMITING, UNSPECIFIED Status: Acute Priority: Medium Current Visit: Yes (5) Weakness SNOMED Code(s): 87999757 Code(s): R53.1 - WEAKNESS Status: Acute Priority: Medium Current Visit : Yes (6) Malignant neoplasm of ascending colon Status: Chronic Current Visit: No (7) Malnutrition SNOMED Code(s): 90832315 Code(s): E46 - UNSPECIFIED PROTEIN-CALORIE MALNUTRITION Status: Chronic Priority: Medium Current Visit: No Qualifiers: Malnutrition type: protein-calorie malnutrition Protein-calorie malnutrition severity: severe Qualified Code(s): E43 - Unspecified severe protein-calorie malnutrition (8) Metastatic colon cancer in female SNOMED Code(s): 398671217, 421889435 Code(s): C18.9 - MALIGNANT NEOPLASM OF COLON, UNSPECIFIED Status: Chronic Priority: Medium Current Visit: No - Problem List Review Problem List Initiated/Reviewed/Updated: Yes - My Orders Last 24 Hours: My Active Orders 06/16/18 08:00 Spironolactone [Aldactone] 25 mg NGTUBE DAILY 06/17/18 07:35 Furosemide [Lasix] 20 mg IV ONETIME ONE - Assessment Assessment:: Small bowel obstruction Colon CA Dehydration Weakness Deconditioning Malnutrition - Plan Plan:: 87 yo female patient with a past medical history of Colon Ca with mets, malnutrition, supratherapeutic INR, HTN, Hyperlipidemia is admitted to acute care yesterday for SBO, weakness, deconditioning, dehydration. Will continue with IVF for now. Recheck CT of Abd/Pelvis today. Labs in AM. NG to LIS. Continue with gardner. Monitor weight and kidney function for fluid overload. Plan is to have a family meeting on 06/16/2018 to discuss once again surgery for SBO versus palliative/end of life cares. At this point, surgery is a high risk and may not be an option given current health condition. Will meet with family and recommend palliative/end of life cares. Patient has stated she does not want surgery or be transferred to a higher level of care. She is also adamant chemo treatment. Discussed options with family last evening. They will make a decision today of end of life vs NH. Spoke with social worker assistant and gave them an update. NOTE: This patient seen and examined by me as an [facility] provider.
[2018-06-17] MEDS: Ondansetron 4 MG/2 ML SDV IVPUSH PRN ×2 (08:37→12:10)
[2018-06-17] MEDS: Magnesium Oxide 400 MG Tab NGTUBE SCH ×2 (08:37→20:23)
[2018-06-17] MEDS: Spironolactone 25 MG Tab NGTUBE SCH (08:37)
[2018-06-17] MEDS: Metoprolol Tartrate 25 MG Tab NGTUBE SCH ×2 (08:37→20:23)
[2018-06-17] MEDS: Sodium Chloride 0.9% 10 ML Syringe FLUSH PRN ×3 (08:38→17:15)
[2018-06-17] MEDS: Pantoprazole 40 MG Vial IVPUSH SCH ×2 (12:10)
[2018-06-17] MEDS: Sodium Chloride 0.9% 1,000 ML IV SCH (15:27)
[2018-06-18] MEDS: Pantoprazole 40 MG Vial IVPUSH SCH ×2 (00:17→11:42)
[2018-06-18] MEDS: Sodium Chloride 0.9% 10 ML Syringe FLUSH PRN ×5 (00:17→20:19)
[2018-06-18] MEDS: Metoclopramide 10 MG/2 ML SDV IVPUSH SCH ×4 (00:17→18:07)
[2018-06-18] MEDS: Metoprolol Tartrate 25 MG Tab NGTUBE SCH ×2 (09:41→20:19)
[2018-06-18] MEDS: Magnesium Oxide 400 MG Tab NGTUBE SCH ×2 (09:42→20:20)
[2018-06-18] MEDS: Spironolactone 25 MG Tab NGTUBE SCH (09:42)
[2018-06-18] MEDS: Sodium Chloride 0.9% 1,000 ML IV SCH (12:50)
[2018-06-18] MEDS ORDERED: Furosemide 20 MG/2 ML VIAL IV ONE (19:09)
--- NOTE | 2018-06-18 19:32 | PCM.PN ---
- General Info Date of Service: 06/18/18 Admission Dx/Problem (Free Text): Admission Diagnosis/Problem Admission Diagnosis/Problem Small bowel obstruction Colon CA Dehydration Weakness Deconditioning Malnutrition Subjective Update: Patient denies any pain this morning. She did have one small liquid stool yesterday. No chest pain or SOB. Nausea has improved some. Only taking ice chips. Does not have an appetite yet. She states she feels the same. Functional Status: Reports: Pain Controlled, Urinating. Denies: Tolerating Diet , Ambulating Pain Score: 0 - Review of Systems General: Reports: Weakness, Fatigue. Denies: Fever, Chills Pulmonary: Denies: Shortness of Breath, Cough Cardiovascular: Denies: Chest Pain, Palpitations Gastrointestinal: Reports: Nausea. Denies: Abdominal Pain, Vomiting Skin: Reports: No Symptoms Neurological: Reports: No Symptoms - Patient Data Vitals - Most Recent: Last Vital Signs Temp 36.8 C 06/18/18 16:49 Pulse 103 H 06/18/18 16:49 Resp 16 06/18/18 16:49 BP 104/48 L 06/18/18 16:49 Pulse Ox 92 L 06/18/18 16:49 Weight - Most Recent: 84.822 kg I&O - Last 24 Hours: Intake & Output 06/18/18 06/18/18 06/18/18 06:59 14:59 22:59 Intake Total 799 300 585 Output Total 1450 Balance -651 300 585 Med Orders - Current: Current Medications Diphenoxylate HCl/Atropine (Lomotil 0.025-2.5 Mg) 1 tab NGTUBE BID PRN PRN Reason: Diarrhea Sodium Chloride (Normal Saline) 1,000 mls @ 50 mls/hr IV ASDIRECTED [facility] Last Admin: 06/18/18 12:50 Dose: 50 mls/hr Loperamide HCl (Imodium) 2 mg NGTUBE Q4H PRN PRN Reason: Diarrhea Magnesium Oxide (Magnesium Oxide) 400 mg NGTUBE BID [facility] Metoclopramide HCl (Reglan) 10 mg IVPUSH Q6H [facility] Last Admin: 06/18/18 18:07 Dose: 10 mg Metoprolol Tartrate (Lopressor) 25 mg NGTUBE BID [facility] Ondansetron HCl (Zofran) 4 mg IVPUSH Q6H PRN PRN Reason: Nausea Last Admin: 06/17/18 12:10 Dose: 4 mg Pantoprazole Sodium (Protonix Iv) 40 mg IVPUSH Q12H [facility] Last Admin: 06/18/18 11:42 Dose: 40 mg Prochlorperazine Maleate (Compazine) 10 mg PO Q6H PRN PRN Reason: Nausea Sodium Chloride (Saline Flush) 10 ml FLUSH ASDIRECTED PRN PRN Reason: Keep Vein Open Last Admin: 06/18/18 18:07 Dose: 10 ml Spironolactone (Aldactone) 25 mg NGTUBE DAILY [facility] Discontinued Medications Diphenoxylate HCl/Atropine (Lomotil 0.025-2.5 Mg) tab PO BID PRN PRN Reason: Diarrhea Furosemide (Lasix) 20 mg IV ONETIME ONE Stop: 06/15/18 13:08 Last Admin: 06/15/18 13:24 Dose: 20 mg Furosemide (Lasix) 20 mg IV ONETIME ONE Stop: 06/17/18 07:36 Last Admin: 06/17/18 08:37 Dose: 20 mg Furosemide (Lasix) 20 mg IV ONETIME ONE Stop: 06/17/18 17:57 Last Admin: 06/17/18 18:23 Dose: 20 mg Furosemide (Lasix) 20 mg IV ONETIME ONE Stop: 06/18/18 19:10 Iopamidol (Isovue-300 (61%)) 100 ml IVPUSH ONETIME ONE Stop: 06/16/18 13:32 Last Admin: 06/16/18 14:18 Dose: 100 ml Loperamide HCl (Imodium) 2 mg PO Q4H PRN PRN Reason: Diarrhea Magnesium Oxide (Magnesium Oxide) 400 mg NGTUBE BID [facility] Last Admin: 06/18/18 09:42 Dose: 400 mg Metoprolol Tartrate (Lopressor) 25 mg NGTUBE BID [facility] Last Admin: 06/18/18 09:41 Dose: 25 mg Non-Formulary Medication (Magnesium Oxide [Magnesium Oxide]) 400 mg PO BID [facility] Spironolactone (Aldactone) 25 mg PO DAILY [facility] Spironolactone (Aldactone) 25 mg NGTUBE DAILY [facility] Last Admin: 06/18/18 09:42 Dose: 25 mg - Exam Quality Assessment: Urine Catheter, DVT Prophylaxis. No: Skin Breakdown General: Alert, Cooperative, No Acute Distress Lungs: Clear to Auscultation, Normal Respiratory Effort, Decreased Breath Sounds Cardiovascular: Regular Rate, Regular Rhythm GI/Abdominal Exam: Tender (LLQ), Abnormal Bowel Sounds (Hypoactive) Peripheral Pulses: 2+: Radial (R), Femoral (L) Skin: Warm, Dry, Intact Neurological: No New Focal Deficit - Problem List & Annotations (1) Small bowel obstruction SNOMED Code(s): 172285445 Code(s): K56.609 - UNSP INTESTNL OBST, UNSP TO PARTIAL VERSUS COMPLETE OBST Status: Acute Priority: High Current Visit: Yes Onset Date: ~ (2) Elevated INR SNOMED Code(s): 455508349 Code(s): R79.1 - ABNORMAL COAGULATION PROFILE Status: Acute Priority: Medium Current Visit: Yes (3) Physical deconditioning SNOMED Code(s): 78279619553624 Code(s): R53.81 - OTHER MALAISE Status: Acute Priority: Medium Current Visit: Yes (4) Vomiting SNOMED Code(s): 649247249 Code(s): R11.10 - VOMITING, UNSPECIFIED Status: Acute Priority: Medium Current Visit: Yes (5) Weakness SNOMED Code(s): 30655238 Code(s): R53.1 - WEAKNESS Status: Acute Priority: Medium Current Visit : Yes (6) Malignant neoplasm of ascending colon Status: Chronic Current Visit: No (7) Malnutrition SNOMED Code(s): 81672208 Code(s): E46 - UNSPECIFIED PROTEIN-CALORIE MALNUTRITION Status: Chronic Priority: Medium Current Visit: No Qualifiers: Malnutrition type: protein-calorie malnutrition Protein-calorie malnutrition severity: severe Qualified Code(s): E43 - Unspecified severe protein-calorie malnutrition (8) Metastatic colon cancer in female SNOMED Code(s): 712628884, 309827926 Code(s): C18.9 - MALIGNANT NEOPLASM OF COLON, UNSPECIFIED Status: Chronic Priority: Medium Current Visit: No - Problem List Review Problem List Initiated/Reviewed/Updated: Yes - My Orders Last 24 Hours: My Active Orders 06/18/18 20:00 Magnesium Oxide 400 mg NGTUBE BID Metoprolol Tartrate [Lopressor] 25 mg NGTUBE BID 06/19/18 08:00 Spironolactone [Aldactone] 25 mg NGTUBE DAILY - Assessment Assessment:: Small bowel obstruction Colon CA Dehydration Weakness Deconditioning Malnutrition - Plan Plan:: 87 yo female patient with a past medical history of Colon Ca with mets, malnutrition, supratherapeutic INR, HTN, Hyperlipidemia is admitted to acute care yesterday for SBO, weakness, deconditioning, dehydration. Will continue with IVF for now. CT of Abd/Pelvis unchanged. Labs in AM. NG to LIS. Continue with gardner. Monitor weight and kidney function for fluid overload. Plan at this point is for the patient to transfer to End of Life cares. The patient and family conferences have revealed the patient does not want any surgery or chemo. Family and patient have made an educated decision to transition to Palliative/End of Life cares on 06/19/2018. Family and patient are aware the IVF will be stopped and the NG will be taken out. NOTE: This patient seen and examined by me as an [facility] provider.
[2018-06-19] MEDS: Pantoprazole 40 MG Vial IVPUSH SCH (00:23)
[2018-06-19] MEDS: Metoclopramide 10 MG/2 ML SDV IVPUSH SCH ×2 (00:23→05:26)
[2018-06-19] MEDS: Sodium Chloride 0.9% 10 ML Syringe FLUSH PRN (05:26)
[2018-06-19] MEDS: Magnesium Oxide 400 MG Tab NGTUBE SCH (07:39)
[2018-06-19] MEDS: Metoprolol Tartrate 25 MG Tab NGTUBE SCH (07:40)
[2018-06-19] MEDS ORDERED: Spironolactone 25 MG Tab NGTUBE SCH (08:00)
--- NOTE | 2018-06-19 11:17 | PCM.DCSUM1 ---
Discharge Summary - Hospital Course HPI Initial Comments: Patient was originally admitted to Observation on June 01 for a supratherapeutic INR, low potassium, and diarrhea. Patient had stool testing completed which did not show any C-Diff or other enteric pathogens. Patient was given Vit K for high INR and KCL IV. She was transitioned to Swing bed for continues cares and rehab. While on swing bed, a SBO was found so patient status was changed to acute today due to having an NG. Doll, poor potential for rehab, lab monitoring, and IVF. Patient has declined over the past few days. She is on bedrest as she is too weak to participate in getting out of bed. INR yesterday was >13.0 for 5 mg of IV Vit K was given. Today, her INR is 1.4. Patient continue to have large amount of stool like output through the NG. She has only taken ice chips for any oral intake. Patient is currently under treatment for colon CA. Her last chemo was May 30. She has not tolerated chemo well as it has caused considerable diarrhea, weakness, poor PO intake. Her INR's have been variable. Patient and family have decided at this point for End of Life/Comfort Cares. The patient has declined anymore chemo or any surgery. Diagnosis: Stroke: No Modified Thurston Scale: No Symptoms at All Modified Isidro Scale Score: 0 - Discharge Data Discharge Date: 06/19/18 Discharge Disposition: DC/Tfer W/I Hosp To [place] [id number] Condition: Poor - Discharge Diagnosis/Problem(s) (1) Small bowel obstruction SNOMED Code(s): 818778697 ICD Code: K56.609 - UNSP INTESTNL OBST, UNSP TO PARTIAL VERSUS COMPLETE OBST Status: Acute Priority: High Current Visit: Yes Onset Date: ~ (2) Elevated INR SNOMED Code(s): 143905279 ICD Code: R79.1 - ABNORMAL COAGULATION PROFILE Status: Acute Priority: Medium Current Visit: Yes (3) Physical deconditioning SNOMED Code(s): 04536812402344 ICD Code: R53.81 - OTHER MALAISE Status: Acute Priority: Medium Current Visit: Yes (4) Vomiting SNOMED Code(s): 633002105 ICD Code: R11.10 - VOMITING, UNSPECIFIED Status: Resolved Priority: Medium Current Visit: Yes (5) Weakness SNOMED Code(s): 10626788 ICD Code: R53.1 - WEAKNESS Status: Acute Priority: Medium Current Visit : Yes (6) Malignant neoplasm of ascending colon Status: Chronic Current Visit: No (7) Malnutrition SNOMED Code(s): 53648717 ICD Code: E46 - UNSPECIFIED PROTEIN-CALORIE MALNUTRITION Status: Chronic Priority: Medium Current Visit: No Qualifiers: Malnutrition type: protein-calorie malnutrition Protein-calorie malnutrition severity: severe Qualified Code(s): E43 - Unspecified severe protein-calorie malnutrition (8) Metastatic colon cancer in female SNOMED Code(s): 031166638, 800518497 ICD Code: C18.9 - MALIGNANT NEOPLASM OF COLON, UNSPECIFIED Status: Chronic Priority: Medium Current Visit: No - Patient Summary/Data Operative Procedure(s) Performed: None Consults: Consultations 06/15/18 11:23 Consult to Case Management/Cane Flume Watchman [CONS] Routine Labs Pending at D/C: None Recommended Follow-up Testing/Procedures: None Planned Operative Procedure(s) after DC: None - Patient Instructions Diet: NPO Activity: Bedrest - Discharge Plan *PRESCRIPTION DRUG MONITORING PROGRAM REVIEWED*: Not Applicable *COPY OF PRESCRIPTION DRUG MONITORING REPORT IN PATIENT JOHN: Not Applicable Home Medications: Home Meds Ondansetron [Zofran] 4 mg IVPUSH Q6H PRN #20 vial 06/03/18 [Rx] Metoclopramide [Reglan] 10 mg IVPUSH Q6H sdv 06/15/18 [Rx] Oxygen Therapy Mode: Room Air - Discharge Summary/Plan Comment DC Time >30 min.: No Discharge Summary/Plan Comment: Patient will be discharged to in hospital Swing Bed for End of Life Cares. Patient will be a Code III per patient and family wishes. Only necessary comfort meds will be continued at this point. - General Info Date of Service: 06/19/18 Admission Dx/Problem (Free Text: Admission Diagnosis/Problem Admission Diagnosis/Problem Small bowel obstruction Colon CA Dehydration Weakness Deconditioning Malnutrition Subjective Update: Patient states she feels depressed due to her currently health status. She denies any pain. She denies any chest pain or SOB. She feels comfortable resting in bed. Offers no specific complaints or concerns. Functional Status: Reports: Pain Controlled, Urinating. Denies: Tolerating Diet , Ambulating Numeric/FACES Score: 0 - Review of Systems General: Reports: Weakness, Fatigue. Denies: Fever, Chills Pulmonary: Denies: Shortness of Breath, Cough Cardiovascular: Denies: Chest Pain, Palpitations Gastrointestinal: Denies: Abdominal Pain, Nausea, Vomiting Skin: Reports: No Symptoms Neurological: Reports: No Symptoms Psychiatric: Reports: Mood Lability - Patient Data Vitals - Most Recent: Last Vital Signs Temp 36.1 C 06/19/18 06:00 Pulse 94 06/19/18 07:40 Resp 18 06/19/18 06:00 BP 117/60 06/19/18 07:40 Pulse Ox 94 L 06/19/18 06:00 Weight - Most Recent: 85.23 kg I&O - Last 24 hours: Intake & Output 06/18/18 06/19/18 06/19/18 22:59 06:59 14:59 Intake Total 585 591 0 Output Total 1400 Balance 585 -809 0 Med Orders - Current: Current Medications Diphenoxylate HCl/Atropine (Lomotil 0.025-2.5 Mg) 1 tab NGTUBE BID PRN PRN Reason: Diarrhea Sodium Chloride (Normal Saline) 1,000 mls @ 50 mls/hr IV ASDIRECTED [facility] Last Admin: 06/18/18 12:50 Dose: 50 mls/hr Loperamide HCl (Imodium) 2 mg NGTUBE Q4H PRN PRN Reason: Diarrhea Magnesium Oxide (Magnesium Oxide) 400 mg NGTUBE BID [facility] Last Admin: 06/19/18 07:39 Dose: 400 mg Metoclopramide HCl (Reglan) 10 mg IVPUSH Q6H [facility] Last Admin: 06/19/18 05:26 Dose: 10 mg Metoprolol Tartrate (Lopressor) 25 mg NGTUBE BID [facility] Last Admin: 06/19/18 07:40 Dose: 25 mg Ondansetron HCl (Zofran) 4 mg IVPUSH Q6H PRN PRN Reason: Nausea Last Admin: 06/17/18 12:10 Dose: 4 mg Pantoprazole Sodium (Protonix Iv) 40 mg IVPUSH Q12H [facility] Last Admin: 06/19/18 00:23 Dose: 40 mg Prochlorperazine Maleate (Compazine) 10 mg PO Q6H PRN PRN Reason: Nausea Sodium Chloride (Saline Flush) 10 ml FLUSH ASDIRECTED PRN PRN Reason: Keep Vein Open Last Admin: 06/19/18 05:26 Dose: 10 ml Spironolactone (Aldactone) 25 mg NGTUBE DAILY [facility] Last Admin: 06/19/18 07:40 Dose: 25 mg Discontinued Medications Diphenoxylate HCl/Atropine (Lomotil 0.025-2.5 Mg) tab PO BID PRN PRN Reason: Diarrhea Furosemide (Lasix) 20 mg IV ONETIME ONE Stop: 06/15/18 13:08 Last Admin: 06/15/18 13:24 Dose: 20 mg Furosemide (Lasix) 20 mg IV ONETIME ONE Stop: 06/17/18 07:36 Last Admin: 06/17/18 08:37 Dose: 20 mg Furosemide (Lasix) 20 mg IV ONETIME ONE Stop: 06/17/18 17:57 Last Admin: 06/17/18 18:23 Dose: 20 mg Furosemide (Lasix) 20 mg IV ONETIME ONE Stop: 06/18/18 19:10 Last Admin: 06/18/18 20:19 Dose: 20 mg Iopamidol (Isovue-300 (61%)) 100 ml IVPUSH ONETIME ONE Stop: 06/16/18 13:32 Last Admin: 06/16/18 14:18 Dose: 100 ml Loperamide HCl (Imodium) 2 mg PO Q4H PRN PRN Reason: Diarrhea Magnesium Oxide (Magnesium Oxide) 400 mg NGTUBE BID [facility] Last Admin: 06/18/18 09:42 Dose: 400 mg Metoprolol Tartrate (Lopressor) 25 mg NGTUBE BID [facility] Last Admin: 06/18/18 09:41 Dose: 25 mg Non-Formulary Medication (Magnesium Oxide [Magnesium Oxide]) 400 mg PO BID [facility] Spironolactone (Aldactone) 25 mg PO DAILY [facility] Spironolactone (Aldactone) 25 mg NGTUBE DAILY [facility] Last Admin: 06/18/18 09:42 Dose: 25 mg - Exam Quality Assessment: Reports: Urine Catheter. Denies: DVT Prophylaxis, Skin Breakdown General: Reports: Alert, Cooperative, No Acute Distress Lungs: Reports: Normal Respiratory Effort, Decreased Breath Sounds Cardiovascular: Reports: Regular Rate, Regular Rhythm GI/Abdominal Exam: Soft, Tender, Abnormal Bowel Sounds (Hypoactive/Absent) Skin: Reports: Warm, Dry, Intact Neurological: Reports: No New Focal Deficit *Q Meaningful Use (DIS) - VTE *Q VTE Mechanical Contraindications *Q: At Risk for Falls
== END 2018-06-19 12:15 | disposition swing bed (61) | DRG 388 ==
LOC: VM.MS 10:58
PROVIDERS: ADMIT Nurse Practitioner Family; ATTEND Nurse Practitioner Family
DX: K56.699 Other intestinal obstruction unspecified as to partial versus complete obstruction (principal); E43 Unspecified severe protein-calorie malnutrition; C18.2 Malignant neoplasm of ascending colon; R79.1 Abnormal coagulation profile; K52.9 Noninfective gastroenteritis and colitis, unspecified; E86.0 Dehydration; I50.9 Heart failure, unspecified; E78.00 Pure hypercholesterolemia, unspecified; Z68.31 Body mass index [BMI] 31.0-31.9, adult; Z86.711 Personal history of pulmonary embolism; Z79.899 Other long term (current) drug therapy; Z88.1 Allergy status to other antibiotic agents; Z88.5 Allergy status to narcotic agent; Z88.2 Allergy status to sulfonamides; Z91.040 Latex allergy status
CPT/HCPCS: 36415; 74177; 80048; 80053; 84145; 85025; 85610; A9270-GY; C9113; J1940; J2405; J2765; J7030; Q9967

== ENCOUNTER 2018-06-19 07:34 | Inpatient (IN) | payer MEDICARE, BC ==
[2018-06-19] MEDS ORDERED: Lidocaine 2% Viscous Solution 15 ML Cup PO PRN (12:40)
[2018-06-19] MEDS ORDERED: Atropine 1% Ophth Soln 5 ML BOTTLE SL PRN (12:40)
[2018-06-19] MEDS ORDERED: Menthol/Zinc Oxide Ointment 3.5 GM Tube TOP PRN (12:40)
[2018-06-19] MEDS ORDERED: Simethicone 80 MG Tab.Chew PO PRN (12:40)
[2018-06-19] MEDS ORDERED: Acetaminophen 650 MG Supp RECTAL PRN (12:40)
[2018-06-19] MEDS ORDERED: Prochlorperazine 10 MG/2 ML SDV IM PRN (12:40)
[2018-06-19] MEDS ORDERED: Ondansetron 4 MG Tab.DIS PO PRN (12:40)
[2018-06-19] MEDS ORDERED: Morphine 4 MG/ML Syringe IM PRN (12:47)
[2018-06-19] MEDS ORDERED: Glycopyrrolate 0.2 MG/ML 2 ML SDV SUBCUT PRN (12:48)
[2018-06-21] MEDS: Morphine Oral Concentrate 20 MG/ML 30 ML Bottle PO PRN ×2 (21:31→22:46)
[2018-06-22] MEDS: Morphine Oral Concentrate 20 MG/ML 30 ML Bottle PO PRN (22:12)
[2018-06-23] MEDS: Morphine Oral Concentrate 20 MG/ML 30 ML Bottle PO PRN ×3 (00:36→22:02)
[2018-06-24] MEDS: Morphine Oral Concentrate 20 MG/ML 30 ML Bottle PO PRN ×2 (16:27→20:59)
[2018-06-25] MEDS: diazePAM 5 MG/ML MDV IM PRN ×2 (12:16→18:37)
[2018-06-25] MEDS: Morphine Oral Concentrate 20 MG/ML 30 ML Bottle PO PRN (18:36)
[2018-06-26] MEDS: Morphine Oral Concentrate 20 MG/ML 30 ML Bottle PO PRN ×2 (14:08→21:20)
[2018-06-26] MEDS: diazePAM 5 MG/ML MDV IM PRN ×2 (14:08→21:20)
[2018-06-27] MEDS: Morphine Oral Concentrate 20 MG/ML 30 ML Bottle PO PRN (14:09)
[2018-06-28] MEDS: Morphine Oral Concentrate 20 MG/ML 30 ML Bottle PO PRN ×2 (09:36→19:15)
[2018-06-28] MEDS: diazePAM 5 MG/ML MDV IM PRN ×2 (09:42→14:14)
[2018-06-29] MEDS: diazePAM 5 MG/ML MDV IM PRN (10:00)
[2018-06-29] MEDS: Morphine Oral Concentrate 20 MG/ML 30 ML Bottle PO PRN (10:28)
[2018-06-29] MEDS: Morphine 4 MG/ML Syringe SUBCUT PRN (16:09)
[2018-06-30] MEDS: Morphine 4 MG/ML Syringe SUBCUT PRN (09:25)
[2018-06-30] MEDS: diazePAM 5 MG/ML MDV IM PRN (09:25)
== END 2018-06-30 10:18 | disposition expired | DRG 951 ==
LOC: VM.MS 12:15
PROVIDERS: ADMIT Nurse Practitioner Family; ATTEND Nurse Practitioner Family
DX: Z51.5 Encounter for palliative care (principal); E43 Unspecified severe protein-calorie malnutrition; K56.699 Other intestinal obstruction unspecified as to partial versus complete obstruction; C18.2 Malignant neoplasm of ascending colon; K52.1 Toxic gastroenteritis and colitis; T45.1X5A Adverse effect of antineoplastic and immunosuppressive drugs, initial encounter; I46.9 Cardiac arrest, cause unspecified; R79.1 Abnormal coagulation profile; R53.1 Weakness; E86.0 Dehydration; Z96.0 Presence of urogenital implants
CPT/HCPCS: A9270-GY; J2270; J3360